=== PATIENT | male | born 1950 | race Caucasian/White ===

== ENCOUNTER 2021-06-08 03:07 | Emergency (ER) | payer MEDICARE, SELFPAY ==
[2021-06-08 03:17] VITALS: BP 130/81; PULSE 75; RESP 19; TEMP 36.4; O2SAT 95; BMI 26.8
[2021-06-08 03:32] LABS: Add Manual Diff / Slide Review NO; Basophils Absolute Auto 100 /uL (0-100); Basophils Percent Auto 0.7 % (0-2); Eosinophils Absolute Auto 400 /uL (0-450); Eosinophils Percent Auto 5.8 % (2-4); Hematocrit 46.8 % (41-53); Hemoglobin 15.5 g/dL (13.5-17.5); Lymphocytes Absolute Auto 1000 /uL (1100-4500); Lymphocytes Percent Auto 14.1 % (25-40); Mean Corpuscular Hemoglobin 30.6 PG (26-34); Mean Corpuscular Volume 92.7 fL (80-100); Monocytes Absolute Auto 1200 /uL (0-900); Neutrophils Absolute Auto 4600 /uL (1500-7000); Neutrophils Percent Auto 62.4 % (50-75); Platelet Count 226 X10^3/uL (150-400); Red Blood Cell Count 5.05 X10^6/uL (4.5-5.9); Red Cell Distribution Width 12.7 % (11.6-14.8); White Blood Cell Count 7.3 X10^3/uL (4.5-11.0)
[2021-06-08] MEDS: KETOROLAC 30 MG/ML VIAL IV (03:33)
[2021-06-08] MEDS: HYDROMORPHONE 1 MG INJ IV (03:34)
[2021-06-08] MEDS: ONDANSETRON 4 MG/2 ML INJ IV (03:34)
[2021-06-08 03:35] LABS: BUN Creatinine Ratio 26.9 (6-22); Blood Urea Nitrogen 32 mg/dL (9-20); Calcium 9.8 mg/dL (8.4-10.2); Carbon Dioxide 26 mmol/L (22-32); Chloride 104 mmol/L (98-107); Estimated Glomerular Filt Rate > 60.0 mL/min (>60); Glucose 115 mg/dL (80-110); HEMOLYSIS 64 (0-50); Sodium 139 mmol/L (137-145)
[2021-06-08 03:36] LABS: Potassium 4.6 mmol/L (3.4-5.1)
--- NOTE | 2021-06-08 03:50 | ED.GENADULT ---
HPI - General Adult General Chief complaint: Urogenital-Male Stated complaint: right side back pain, thinks kidney stone Time Seen by Provider: 06/08/21 03:09 Source: patient Mode of arrival: Ambulatory History of Present Illness HPI narrative: Patient is a 62-year-old male here for evaluation right-sided abdominal/flank/groin pain. He states that he thinks he has a kidney stone. He has had multiple kidney stones the past and this feels just like prior episode. He states he has had some back discomfort for the past several days but starting last evening he started to have pain in the right side of his abdomen is now down into his groin. Has blood in his urine. No fevers. Has quite a bit of discomfort expressed with urinating Related Data Previous Rx's Medication Instructions Recorded ondansetron 4 mg disintegrating 4 mg PO Q6H PRN #10 tab 06/08/21 tablet oxycodone-acetaminophen 5 mg-325 1 tab PO Q4H PRN #7 tab 06/08/21 mg tablet (Percocet) Allergies Allergy/AdvReac Type Severity Reaction Status Date / Time codeine AdvReac Vomiting Verified 06/08/21 03:25 Review of Systems Constitutional Comments: No fevers Gastrointestinal Gastrointestinal: Reports as per HPI Genitourinary Genitourinary: Reports as per HPI Integumentary/Breasts Skin/Breast: Reports system reviewed and no additional complaints, except as documented Hematologic/Lymphatic On Anticoagulants: No Patient History Medical History Kidney stones Social History Smoking Status: Never smoker Smoking Status: Never smoker alcohol intake frequency: 0-2 drinks per day Substance Use Type: does not use Exam Initial Vital Signs Initial Vital Signs: Vital Signs Temperature 97.5 F L 06/08/21 03:17 Pulse Rate 75 06/08/21 03:17 Respiratory Rate 19 06/08/21 03:17 Blood Pressure 130/81 06/08/21 03:17 Pulse Oximetry 95 06/08/21 03:17 Const General: cooperative and healthy appearing HENWA Head: normal to inspection and normocephalic Resp Effort & Inspection: normal respiratory effort Cardio Rate: regular rate GI Inspection: normal to inspection Palpation: soft and tender (Right side of abdomen) Skin General: no rashes or lesions noted Neuro General: patient alert, patient awake and moves all extremities Extrem General: normal to inspection and capillary refill normal Psych Appearance: grossly normal and well kempt Course Orders Ordered: ED Orders 06/08/21 03:20 Basic Metabolic Panel Stat Complete Blood Count AUTO DIFF Stat 06/08/21 05:05 Urinalysis and Microscopic Stat Urine Culture Stat Discontinued Medications Hydromorphone HCl (Hydromorphone 1 Mg Inj) 1 mg IV NOW ONE Stop: 06/08/21 03:24 Last Admin: 06/08/21 03:34 Dose: 1 mg Documented by: SUNDEEP Ketorolac Tromethamine (Ketorolac 30 Mg/Ml Vial) 30 mg IV NOW ONE Stop: 06/08/21 03:24 Last Admin: 06/08/21 03:33 Dose: 30 mg Documented by: SUNDEEP Ondansetron HCl (Ondansetron 4 Mg/2 Ml Inj) 4 mg IV NOW ONE Stop: 06/08/21 03:26 Last Admin: 06/08/21 03:34 Dose: 4 mg Documented by: SUNDEEP Ondansetron HCl (Ondansetron 4 Mg Odt Prepack) 1 bottle MISC SEEINSTR ONE Stop: 06/08/21 05:29 Last Admin: 06/08/21 05:32 Dose: 1 bottle Documented by: SUNDEEP Oxycodone/Acetaminophen (Oxycodone/Apap 5/325 Prepack) 1 bottle MISC SEEINSTR ONE Stop: 06/08/21 05:29 Last Admin: 06/08/21 05:32 Dose: 1 bottle Documented by: SUNDEEP Vital Signs Vital signs: Vital Signs - 8 hr 06/08/21 03:17 Temperature 97.5 F L Pulse Rate 75 Respiratory Rate 19 Blood Pressure 130/81 Pulse Oximetry 95 Medical Decision Making Lab Data Lab results reviewed: Yes I reviewed the patient's lab results. Result diagrams: 06/08/21 03:20 06/08/21 03:20 Labs: Lab Results 06/08/21 06/08/21 06/08/21 Range/Units 03:20 03:20 05:05 WBC 7.3 (4.5-11.0) X10^3/uL RBC 5.05 (4.5-5.9) X10^6/uL Hgb 15.5 (13.5-17.5) g/dL Hct 46.8 (41-53) % MCV 92.7 (80-100) fL MCH 30.6 (26-34) PG MCHC 33.0 (30-36) % RDW 12.7 (11.6-14.8) % Plt Count 226 (150-400) X10^3/uL Neut % (Auto) 62.4 (50-75) % Lymph % (Auto) 14.1 L (25-40) % [place] % (Auto) 17.0 H (3-14) % Eos % (Auto) 5.8 H (2-4) % Baso % (Auto) 0.7 (0-2) % Neut # (Auto) 4600 (1018-0283) /uL Lymph # (Auto) 1000 L (6510-0380) /uL [place] # (Auto) 1200 H (0-900) /uL Eos # (Auto) 400 (0-450) /uL Baso # (Auto) 100 (0-100) /uL Sodium 139 (137-145) mmol/L Potassium 4.6 (3.4-5.1) mmol/L Chloride 104 (98-107) mmol/L Carbon Dioxide 26 (22-32) mmol/L BUN 32 H (9-20) mg/dL Creatinine 1.19 (0.66-1.25) mg/dL Estimated GFR > 60.0 (>60) mL/min BUN/Creatinine Ratio 26.9 H (6-22) Glucose 115 H (80-110) mg/dL Calcium 9.8 (8.4-10.2) mg/dL Urine Color Yellow Urine Appearance Cloudy Urine pH 5.0 (4.5-8.0) Ur Specific [place] 1.025 (1.000-1.035) Urine Protein 2+ H (Negative) Urine Glucose (UA) Negative (Negative) g/dL Urine Ketones Negative (NEGATIVE) Urine Occult Blood 3+ H (Negative) Urine Nitrate Negative (Negative) Urine Bilirubin Negative (NEGATIVE) Urine Urobilinogen 0.2 (0.2) E.U./dL Ur Leukocyte Esterase Trace H (NEGATIVE) Urine RBC 30-100/hpf H (0-5/HPF) Urine WBC 0-1/hpf (0-5/HPF) Ur Squamous Epith Cells 0-1 /hpf (0-5/HPF) Calcium Oxalate Crystal Few H Urine Bacteria Moderate (10-30) H (None) Hyaline Casts 0-1/lpf (None) Ur Culture Indicated? Specimen cultured MDM Narrative Medical decision making narrative: Patient does have right-sided flank/abdominal discomfort. He has had multiple kidney stones in the past he states this feels just like his prior kidney stones. His kidney function is unremarkable. Does not have leukocytosis. Vital signs unremarkable. Had a great improvement of his symptoms after medications here in the ER. Urine does have bacteria and red blood cells. We will hold on treating with any antibiotics until the cultures resulted. The patient was informed that there was a culture pending at the time of his discharge and that we will contact him if we need to start any medications. Will send home with symptom control. He was given strict return precautions and follow-up instructions. He expressed understanding and agreement. Discharge Plan Departure Patient Disposition: Home Clinical Impression: Kidney stone on right side Instructions: DI for Kidney Stones Activity Restrictions/Additional Instructions: A prescription for pain medication was electronically transmitted to [facility]. Please start taking as directed. Be sure to increase your fluid intake. Contact your primary doctor for follow-up. If you do not have a primary doctor you can contact [phone]. This is the health resource development director here at the hospital that can help you establish a primary doctor. Return to the emergency department for any fevers, pain that is not controlled medication or inability to urinate. Prescriptions: New ondansetron 4 mg tablet,disintegrating 4 mg PO Q6H PRN (Reason: nausea and vomiting) Qty: 10 RF: 0 oxycodone-acetaminophen [Percocet] 5-325 mg tablet 1 tab PO Q4H PRN (Reason: pain) Qty: 7 RF: 0
[2021-06-08 05:11] LABS: Appearance Urine UA CLOUDY; Bilirubin Urine UA NEGATIVE (NEGATIVE); Color Urine UA YELLOW; Glucose Urine UA NEGATIVE (Negative); Ketones Urine UA NEGATIVE (NEGATIVE); Leukocyte Esterase Urine UA TRACE (NEGATIVE); Nitrite Urine UA NEGATIVE (Negative); Occult Blood Urine UA 3+ (Negative); Protein Urine UA 2+ (Negative); Specific Gravity Urine UA 1.025 (1.000-1.035); Urobilinogen Urine UA 0.2 E.U./dL (0.2)
[2021-06-08 05:19] LABS: Bacteria Urine Moderate (10-30); Calcium Oxalate Crystals Urine Few; RBC Urine 30-100/HPF (0-5/HPF); Squamous Epithelial Cell Urine 0-1 /HPF (0-5/HPF); WBC Urine 0-1/HPF (0-5/HPF)
[2021-06-08 05:20] LABS: Culture Indicated Urine Specimen Cultured; Hyaline Casts Urine 0-1/LPF
[2021-06-08] MEDS: ONDANSETRON 4 MG ODT PREPACK 1 BOTTLE MISC (05:32)
[2021-06-08] MEDS: OXYCODONE/APAP 5/325 PREPACK 1 BOTTLE MISC (05:32)
[2021-06-08 05:38] VITALS: BP 125/79; PULSE 59; RESP 16; O2SAT 99
== END 2021-06-08 05:39 | disposition home or self-care (01) ==
PROVIDERS: Emergency Provider Emergency Medicine
DX: N20.0 Calculus of kidney (principal); Z87.442 Personal history of urinary calculi
CPT/HCPCS: 36415; 80048; 81001; 85025; 87086; 96374; 96375; 99284; J1170; J1885; J2405

== ENCOUNTER 2021-12-30 09:05 | Emergency (ER) | payer OTHER, SELFPAY ==
[2021-12-30] VITALS (23 sets, daily range): BP systolic 91–134; BP diastolic 52–84; PULSE 72–119; RESP 14–17; TEMP 36.6–39.6; O2SAT 93–97; BMI 26.9
--- NOTE | 2021-12-30 09:20 | DI.RAD.S_ITS ---
PROCEDURE: XR CHEST 1V INDICATIONS: suspected sepsis TECHNIQUE: One view of the chest was acquired. COMPARISON: None. FINDINGS: Surgical changes and devices: None. Lungs and pleura: Bilateral airspace opacities are seen. No pleural effusions or pneumothorax. Mediastinum: Mediastinal contours appear normal. Enlargement of the cardiac silhouette, partially exaggerated by technique. Bones and chest wall: No suspicious bony lesions. Overlying soft tissues appear unremarkable. IMPRESSION: Multifocal pneumonia. Dictated by: Tae Pinedo M.D. on 12/30/2021 at 10:06 Approved by: Tae Pinedo M.D. on 12/30/2021 at 10:07
[2021-12-30] MEDS: ONDANSETRON 4 MG/2 ML INJ IV (09:45)
[2021-12-30] MEDS: SODIUM CHLORIDE 0.9% 1,000 ML 1000 ML IV ×2 (09:45→11:25)
[2021-12-30] MEDS: ACETAMINOPHEN 325 MG TABLET 975 MG PO (09:45)
--- NOTE | 2021-12-30 09:55 | DI.CT.S_ITS ---
PROCEDURE: CT ABDOMEN PELVIS W CON INDICATIONS: Lower abdominal pain. Fever. Recent prostate biopsy. TECHNIQUE: After the administration of intravenous contrast, axial sections acquired from the lung bases to the pubic symphysis. Coronal and sagittal reformats were performed. For radiation dose reduction, the following was used: automated exposure control, adjustment of mA and/or kV according to patient size. COMPARISON: [facility], CR, XR CHEST 1V, 12/30/2021, 9:42. FINDINGS: Image quality: Excellent. Lung bases: Bilateral patchy ground-glass opacities and small consolidations in the included portions of both lungs is suspicious for pneumonia. Mildly prominent mediastinal and hilar lymph nodes are likely reactive. Heart: No significant findings. ABDOMEN: Liver: Unremarkable. Gallbladder: Unremarkable. Biliary ducts: Unremarkable. Pancreas: Unremarkable. Spleen: Multiple small nonspecific hypodense lesions are seen throughout the spleen. A few coarse calcifications are also noted in the spleen. Adrenal Glands: Unremarkable. Kidneys and Ureters: Multiple bilateral simple appearing renal cysts are seen, right greater than left. Mild left renal cortical scarring is present. Multiple small nonobstructing renal calculi are seen bilaterally measuring up to 4 mm on the right and 3 mm on the left. No hydronephrosis. No ureteral calculus. Stomach and Bowel: Scattered diverticula are seen in the colon without signs of acute diverticulitis. Normal appendix. Peritoneum: No abnormal intraperitoneal fluid. No free air. Ventral Wall: No hernias. Abdominal Nodes: No retroperitoneal or mesenteric adenopathy by size criteria. Vessels: Aorta and inferior vena cava are normal in size. PELVIS: Pelvic Organs: Coarse calcifications are seen in the prostate. Bladder: Unremarkable. Pelvic Nodes: No enlarged lymph nodes. Miscellaneous: Small fat containing right inguinal hernia. Bones: Laminectomy changes are seen at the L5-S1 level with right-sided posterior fixation hardware. Degenerative changes are seen in the spine. A right total hip arthroplasty is present. IMPRESSION: 1. Patchy opacities in the bilateral lower lobes are suspicious for pneumonia, in a pattern that can be seen in the setting of COVID-19 infection. 2. No acute abnormality is identified in the abdomen or pelvis. 3. Multiple small low-density lesions in the spleen are nonspecific but could be related to a systemic infectious or inflammatory process including a granulomatous disease or certain fungal infections. 4. Colonic diverticulosis without signs of acute diverticulitis. 5. Bilateral nonobstructing renal calculi and renal cysts. No hydronephrosis. Dictated by: Merrick Cobb M.D. on 12/30/2021 at 10:28 Approved by: Merrick Cobb M.D. on 12/30/2021 at 10:40
[2021-12-30 10:01] LABS: Add Manual Diff / Slide Review NO; Basophils Absolute Auto 0 /uL (0-100); Basophils Percent Auto 0.3 % (0-2); Eosinophils Absolute Auto 100 /uL (0-450); Eosinophils Percent Auto 0.5 % (2-4); Hematocrit 43.3 % (41-53); Hemoglobin 14.9 g/dL (13.5-17.5); Lymphocytes Absolute Auto 500 /uL (1100-4500); Lymphocytes Percent Auto 4.1 % (25-40); Mean Corpuscular HGB Conc 34.4 % (30-36); Mean Corpuscular Hemoglobin 30.8 PG (26-34); Mean Corpuscular Volume 89.7 fL (80-100); Monocytes Absolute Auto 200 /uL (0-900); Monocytes Percent Auto 1.3 % (3-14); Neutrophils Absolute Auto 11400 /uL (1500-7000); Neutrophils Percent Auto 93.8 % (50-75); Platelet Count 185 X10^3/uL (150-400); Red Blood Cell Count 4.83 X10^6/uL (4.5-5.9); Red Cell Distribution Width 13.4 % (11.6-14.8); White Blood Cell Count 12.2 X10^3/uL (4.5-11.0)
[2021-12-30 10:03] LABS: INR 1.2 (0.9-1.3); Prothrombin Time 14.1 SECONDS (10.1-12.7)
[2021-12-30 10:03] LABS: COVID19 -Nasal RAPID Negative (Negative)
[2021-12-30 10:06] LABS: Lactate (Lactic Acid) 2.1 mmol/L (0.7-2.1); PTT Partial Thromboplastin Tim 36 SECONDS (26.4-36.2)
[2021-12-30 10:07] LABS: Alanine Aminotransferase 17 IU/L (<50); Albumin 4.1 g/dL (3.5-5.0); Albumin Globulin Ratio 1.1 (1.0-2.8); Alkaline Phosphatase 74 U/L (38-126); Aspartate Aminotransferase 25 IU/L (17-59); BUN Creatinine Ratio 18.1 (6-22); Bilirubin Total 0.9 mg/dL (0.2-1.3); Blood Urea Nitrogen 21 mg/dL (9-20); Calcium 10.1 mg/dL (8.4-10.2); Carbon Dioxide 29 mmol/L (22-32); Chloride 104 mmol/L (98-107); Estimated Glomerular Filt Rate > 60.0 mL/min (>60); Globulin 3.8 g/dL (1.7-4.1); Glucose 108 mg/dL (80-110); HEMOLYSIS < 15 (0-50); Lipase 30 U/L (23-300); Sodium 141 mmol/L (137-145); Total Protein 7.9 g/dL (6.3-8.2)
[2021-12-30] MEDS: PIPERACILLIN/TAZO 4.5 GM in SODIUM CHLORIDE 0.9% 100 ML 200 ML IV (10:12)
[2021-12-30 10:24] LABS: Procalcitonin 21.3 ng/mL (<0.5)
[2021-12-30 11:06] LABS: Appearance Urine UA SL CLOUDY; Bilirubin Urine UA NEGATIVE (NEGATIVE); Color Urine UA YELLOW; Glucose Urine UA NEGATIVE (Negative); Ketones Urine UA NEGATIVE (NEGATIVE); Leukocyte Esterase Urine UA 1+ (NEGATIVE); Nitrite Urine UA POSITIVE (Negative); Occult Blood Urine UA 3+ (Negative); Protein Urine UA 1+ (Negative); Specific Gravity Urine UA 1.015 (1.000-1.035); Urobilinogen Urine UA 0.2 E.U./dL (0.2)
[2021-12-30 11:11] LABS: RBC Urine 10-30/HPF (0-5/HPF); WBC Urine >100/HPF (0-5/HPF)
[2021-12-30 11:12] LABS: Bacteria Urine Many (>30); Culture Indicated Urine Specimen Cultured
[2021-12-30] MEDS: KETOROLAC 30 MG/ML VIAL 15 MG IV (11:25)
--- NOTE | 2021-12-30 11:36 | ED.FEVER ---
HPI - Fever General Chief Complaint: Fever Stated Complaint: Chills, Fever, nausea post prostate biopsy 12/28 Time Seen by Provider: 12/30/21 09:53 Source: patient Mode of arrival: Wheelchair History of Present Illness HPI Narrative: The patient underwent prostate biopsies 2 days ago. The 1st day after procedure, he did well. He then developed abdominal pain with nausea vomiting the 2nd day. He felt better for several hours, nausea vomiting returns. He presents now with fever, abdominal pain, with nausea vomiting. Has no headache, no sore throat, no cough or dyspnea. He denies chest pain. He has no chronic GI issues. He has no dysuria, or hematuria with current symptoms. He has no change in BMs. Related Data Previous Rx's Medication Instructions Recorded ondansetron 4 mg disintegrating 4 mg PO Q6H PRN #10 tab 06/08/21 tablet oxycodone-acetaminophen 5 mg-325 1 tab PO Q4H PRN #7 tab 06/08/21 mg tablet (Percocet) cefdinir 300 mg capsule 300 mg PO Q12H 10 Days #20 cap 12/30/21 ondansetron 4 mg disintegrating 4 mg PO Q4-6H PRN #14 tab 12/30/21 tablet Allergies Allergy/AdvReac Type Severity Reaction Status Date / Time codeine AdvReac Vomiting Verified 12/30/21 09:34 Review of Systems Constitutional Constitutional: Reports chills, Reports fever(s) and Denies headache(s) ENT Ears, Nose, Mouth, and Throat: Denies vertigo, Denies dizziness, Denies headache(s), Denies sinus pressure and Denies sore throat Cardiovascular Cardiovascular: Denies chest pain, Denies syncope, Denies rapid heart rate and Denies dyspnea Respiratory Respiratory: Denies cough and Denies dyspnea Gastrointestinal Gastrointestinal: Reports abdominal pain, Denies change in stool character, Reports nausea and Reports vomiting Genitourinary Genitourinary: Denies dysuria, Denies urinary frequency and Denies urinary urgency Musculoskeletal Musculoskeletal: Denies back pain Integumentary/Breasts Skin/Breast: Denies lesions and Denies rash Neurologic Neurologic: Denies vertigo, Denies dizziness, Denies syncope and Denies headache(s) Hematologic/Lymphatic On Anticoagulants: No Patient History Medical History (Updated 12/30/21 @ 14:55 by Burak Jackson MD) Kidney stones Restrictive lung disease Surgical History (Updated 12/30/21 @ 14:52 by Burak Jackson MD) Hx of prostate biopsy Social History Smoking Status: Never smoker Smoking Status: Never smoker alcohol intake frequency: 0-2 drinks per day Substance Use Type: does not use Exam Initial Vital Signs Initial Vital Signs: Vital Signs Temperature 103.1 F H 12/30/21 09:07 Pulse Rate 111 H 12/30/21 09:07 Respiratory Rate 14 12/30/21 09:07 Blood Pressure 130/84 12/30/21 09:07 Pulse Oximetry 93 12/30/21 09:07 Const General: acute distress, No anxious and ill appearing Orientation: Orientation (Normal) [facility] Head: normocephalic and atraumatic Mouth: oral mucosae normal Throat: posterior oropharynx normal Eyes General: appearance normal, both eyes and all related structures Neck Neck: No lymphadenopathy Resp Auscultation: clear to auscultation bilaterally Cardio Rate: regular rate Rhythm: regular rhythm Heart Sounds: S1 normal, S2 normal, no click, no gallops and no murmurs GI Inspection: normal to inspection Palpation: soft, No mass and tender (Suprapubic region.) Auscultation: normal bowel sounds and other (No guarding or rebound.) Back/Spine/Pelvis Back: No CVA tenderness Skin General: no rashes or lesions noted Neuro General: patient alert, patient awake and no focal motor deficits Extrem General: normal to inspection Psych Appearance: grossly normal Course Orders Ordered: ED Orders 12/30/21 09:20 XR chest 1V Stat EKG-12 Lead Stat RT Consult Eval and Treat NOW 12/30/21 09:43 COVID19 -Nasal swab/Pre-Proc Stat 12/30/21 09:45 Complete Blood Count AUTO DIFF Stat Comprehensive Metabolic Panel Stat Lactate (Lactic Acid) Stat Lipase Stat Partial Thromboplastin Time Stat Procalcitonin Stat Prothrombin Time INR Stat 12/30/21 09:55 CT abdomen pelvis w con Stat 12/30/21 10:05 Blood Culture Stat 12/30/21 10:40 Urinalysis and Microscopic Stat Urine Culture Stat Sodium Chloride (Normal Saline 0.9%) 1,000 mls @ 1,000 mls/hr IV BOLUS PRN PRN Reason: Fluid replacement Discontinued Medications Acetaminophen (Acetaminophen 325 Mg Tablet) 975 mg PO NOW ONE Stop: 12/30/21 09:43 Last Admin: 12/30/21 09:45 Dose: 975 mg Documented by: [place] Sodium Chloride (Normal Saline 0.9%) 1,000 mls @ 1,000 mls/hr IV BOLUS ONE Stop: 12/30/21 10:19 Last Infusion: 12/30/21 12:43 Dose: 0 mls/hr Documented by: JOSE LUIS Admin: 12/30/21 09:45 Dose: 1,000 mls/hr Documented by: [place] Sodium Chloride (Normal Saline 0.9%) 1,000 mls @ 1,000 mls/hr IV BOLUS ONE Stop: 12/30/21 10:54 Last Infusion: 12/30/21 13:43 Dose: 0 mls/hr Documented by: Admin: 12/30/21 11:25 Dose: 1,000 mls/hr Documented by: JOSE LUIS Piperacillin Sod/Tazobactam (Sod 4.5 gm/ Sodium Chloride) 100 mls @ 200 mls/hr IV NOW ONE Stop: 12/30/21 09:59 Last Infusion: 12/30/21 11:14 Dose: 0 mls/hr Documented by: Admin: 12/30/21 10:12 Dose: 200 mls/hr Documented by: [place] Ketorolac Tromethamine (Ketorolac 30 Mg/Ml Vial) 15 mg IV NOW ONE Stop: 12/30/21 10:57 Last Admin: 12/30/21 11:25 Dose: 15 mg Documented by: JOSE LUIS Ondansetron HCl (Ondansetron 4 Mg/2 Ml Inj) 4 mg IV NOW ONE Stop: 12/30/21 09:21 Last Admin: 12/30/21 09:45 Dose: 4 mg Documented by: [place] Ondansetron HCl (Ondansetron 4 Mg/2 Ml Inj) 4 mg IV NOW ONE Stop: 12/30/21 09:56 Last Admin: 12/30/21 10:29 Dose: Not Given Documented by: JOSE LUIS Vital Signs Vital signs: Vital Signs - 8 hr 12/30/21 09:07 12/30/21 09:16 12/30/21 09:17 Temperature 103.1 F H Pulse Rate 111 H 112 H 112 H Respiratory Rate 14 Blood Pressure 130/84 130/84 132/81 Pulse Oximetry 93 94 94 12/30/21 09:30 12/30/21 10:00 12/30/21 10:37 Temperature Pulse Rate 111 H 119 H 105 H Respiratory Rate 17 Blood Pressure 134/75 Pulse Oximetry 95 95 94 12/30/21 10:38 12/30/21 11:00 12/30/21 11:14 Temperature 103.2 F H Pulse Rate 106 H 108 H Respiratory Rate Blood Pressure 121/62 115/58 L Pulse Oximetry 93 94 12/30/21 11:25 12/30/21 11:26 12/30/21 11:30 Temperature 103.2 F H 103.2 F H Pulse Rate 102 H Respiratory Rate Blood Pressure 100/65 Pulse Oximetry 94 12/30/21 12:00 12/30/21 12:01 12/30/21 12:30 Temperature Pulse Rate 95 H 94 H 92 H Respiratory Rate Blood Pressure 106/55 L 109/59 L Pulse Oximetry 93 94 94 MDM - Fever Lab Data Result diagrams: 12/30/21 09:45 12/30/21 09:45 Labs: Lab Results 12/30/21 12/30/21 12/30/21 Range/Units 09:43 09:45 09:45 WBC 12.2 H (4.5-11.0) X10^3/uL RBC 4.83 (4.5-5.9) X10^6/uL Hgb 14.9 (13.5-17.5) g/dL Hct 43.3 (41-53) % MCV 89.7 (80-100) fL MCH 30.8 (26-34) PG MCHC 34.4 (30-36) % RDW 13.4 (11.6-14.8) % Plt Count 185 (150-400) X10^3/uL Neut % (Auto) 93.8 H (50-75) % Lymph % (Auto) 4.1 L (25-40) % [place] % (Auto) 1.3 L (3-14) % Eos % (Auto) 0.5 L (2-4) % Baso % (Auto) 0.3 (0-2) % Neut # (Auto) 81116 H (1547-6485) /uL Lymph # (Auto) 500 L (8919-1508) /uL [place] # (Auto) 200 (0-900) /uL Eos # (Auto) 100 (0-450) /uL Baso # (Auto) 0 (0-100) /uL PT 14.1 H (10.1-12.7) SECONDS INR 1.2 (0.9-1.3) APTT 36 (26.4-36.2) SECONDS Sodium (137-145) mmol/L Potassium (3.4-5.1) mmol/L Chloride (98-107) mmol/L Carbon Dioxide (22-32) mmol/L BUN (9-20) mg/dL Creatinine (0.66-1.25) mg/dL Estimated GFR (>60) mL/min BUN/Creatinine Ratio (6-22) Glucose (80-110) mg/dL Lactate (0.7-2.1) mmol/L Calcium (8.4-10.2) mg/dL Total Bilirubin (0.2-1.3) mg/dL AST (17-59) IU/L ALT (<50) IU/L Alkaline Phosphatase (38-126) U/L Total Protein (6.3-8.2) g/dL Albumin (3.5-5.0) g/dL Globulin (1.7-4.1) g/dL Albumin/Globulin Ratio (1.0-2.8) Lipase (23-300) U/L Procalcitonin (<0.5) ng/mL Urine Color Urine Appearance Urine pH (4.5-8.0) Ur Specific [place] (1.000-1.035) Urine Protein (Negative) Urine Glucose (UA) (Negative) g/dL Urine Ketones (NEGATIVE) Urine Occult Blood (Negative) Urine Nitrate (Negative) Urine Bilirubin (NEGATIVE) Urine Urobilinogen (0.2) E.U./dL Ur Leukocyte Esterase (NEGATIVE) Urine RBC (0-5/HPF) Urine WBC (0-5/HPF) Urine Bacteria (None) Ur Culture Indicated? SARS-CoV-2 (PCR) Negative (Negative) 12/30/21 12/30/21 12/30/21 Range/Units 09:45 09:45 10:40 WBC (4.5-11.0) X10^3/uL RBC (4.5-5.9) X10^6/uL Hgb (13.5-17.5) g/dL Hct (41-53) % MCV (80-100) fL MCH (26-34) PG MCHC (30-36) % RDW (11.6-14.8) % Plt Count (150-400) X10^3/uL Neut % (Auto) (50-75) % Lymph % (Auto) (25-40) % [place] % (Auto) (3-14) % Eos % (Auto) (2-4) % Baso % (Auto) (0-2) % Neut # (Auto) (7339-5439) /uL Lymph # (Auto) (9393-4603) /uL [place] # (Auto) (0-900) /uL Eos # (Auto) (0-450) /uL Baso # (Auto) (0-100) /uL PT (10.1-12.7) SECONDS INR (0.9-1.3) APTT (26.4-36.2) SECONDS Sodium 141 (137-145) mmol/L Potassium 4.0 (3.4-5.1) mmol/L Chloride 104 (98-107) mmol/L Carbon Dioxide 29 (22-32) mmol/L BUN 21 H (9-20) mg/dL Creatinine 1.16 (0.66-1.25) mg/dL Estimated GFR > 60.0 (>60) mL/min BUN/Creatinine Ratio 18.1 (6-22) Glucose 108 (80-110) mg/dL Lactate 2.1 (0.7-2.1) mmol/L Calcium 10.1 (8.4-10.2) mg/dL Total Bilirubin 0.9 (0.2-1.3) mg/dL AST 25 (17-59) IU/L ALT 17 (<50) IU/L Alkaline Phosphatase 74 (38-126) U/L Total Protein 7.9 (6.3-8.2) g/dL Albumin 4.1 (3.5-5.0) g/dL Globulin 3.8 (1.7-4.1) g/dL Albumin/Globulin Ratio 1.1 (1.0-2.8) Lipase 30 (23-300) U/L Procalcitonin 21.3 H (<0.5) ng/mL Urine Color Yellow Urine Appearance Sl cloudy Urine pH 7.0 (4.5-8.0) Ur Specific [place] 1.015 (1.000-1.035) Urine Protein 1+ H (Negative) Urine Glucose (UA) Negative (Negative) g/dL Urine Ketones Negative (NEGATIVE) Urine Occult Blood 3+ H (Negative) Urine Nitrate Positive H (Negative) Urine Bilirubin Negative (NEGATIVE) Urine Urobilinogen 0.2 (0.2) E.U./dL Ur Leukocyte Esterase 1+ H (NEGATIVE) Urine RBC 10-30/hpf H (0-5/HPF) Urine WBC >100/hpf H (0-5/HPF) Urine Bacteria Many (>30) H (None) Ur Culture Indicated? Specimen cultured SARS-CoV-2 (PCR) (Negative) 12/30/21 Range/Units 12:35 WBC (4.5-11.0) X10^3/uL RBC (4.5-5.9) X10^6/uL Hgb (13.5-17.5) g/dL Hct (41-53) % MCV (80-100) fL MCH (26-34) PG MCHC (30-36) % RDW (11.6-14.8) % Plt Count (150-400) X10^3/uL Neut % (Auto) (50-75) % Lymph % (Auto) (25-40) % [place] % (Auto) (3-14) % Eos % (Auto) (2-4) % Baso % (Auto) (0-2) % Neut # (Auto) (2416-4697) /uL Lymph # (Auto) (5211-5126) /uL [place] # (Auto) (0-900) /uL Eos # (Auto) (0-450) /uL Baso # (Auto) (0-100) /uL PT (10.1-12.7) SECONDS INR (0.9-1.3) APTT (26.4-36.2) SECONDS Sodium (137-145) mmol/L Potassium (3.4-5.1) mmol/L Chloride (98-107) mmol/L Carbon Dioxide (22-32) mmol/L BUN (9-20) mg/dL Creatinine (0.66-1.25) mg/dL Estimated GFR (>60) mL/min BUN/Creatinine Ratio (6-22) Glucose (80-110) mg/dL Lactate 1.5 (0.7-2.1) mmol/L Calcium (8.4-10.2) mg/dL Total Bilirubin (0.2-1.3) mg/dL AST (17-59) IU/L ALT (<50) IU/L Alkaline Phosphatase (38-126) U/L Total Protein (6.3-8.2) g/dL Albumin (3.5-5.0) g/dL Globulin (1.7-4.1) g/dL Albumin/Globulin Ratio (1.0-2.8) Lipase (23-300) U/L Procalcitonin (<0.5) ng/mL Urine Color Urine Appearance Urine pH (4.5-8.0) Ur Specific [place] (1.000-1.035) Urine Protein (Negative) Urine Glucose (UA) (Negative) g/dL Urine Ketones (NEGATIVE) Urine Occult Blood (Negative) Urine Nitrate (Negative) Urine Bilirubin (NEGATIVE) Urine Urobilinogen (0.2) E.U./dL Ur Leukocyte Esterase (NEGATIVE) Urine RBC (0-5/HPF) Urine WBC (0-5/HPF) Urine Bacteria (None) Ur Culture Indicated? SARS-CoV-2 (PCR) (Negative) Discharge Plan Departure Patient Disposition: Home Clinical Impression: Urinary tract infection Instructions: DI for Urinary Tract Infection (UTI) Activity Restrictions/Additional Instructions: Cefdinir 2 times daily as prescribed. Tylenol or Advil as needed for fever and pain. Zofran every 4 hours as needed for nausea. Be sure you are drinking plenty of water. If you have increased pain or return of fever return here. Follow-up with your doctor in about 2 weeks. Prescriptions: New cefdinir 300 mg capsule 300 mg PO Q12H 10 Days Qty: 20 0RF ondansetron 4 mg tablet,disintegrating 4 mg PO Q4-6H PRN (Reason: nausea and vomiting) Qty: 14 0RF No Action ondansetron 4 mg tablet,disintegrating 4 mg PO Q6H PRN (Reason: nausea and vomiting) Qty: 10 0RF oxycodone-acetaminophen [Percocet] 5-325 mg tablet 1 tab PO Q4H PRN (Reason: pain) Qty: 7 0RF Referrals: Juan David Browning MD [Primary Care Provider] -
[2021-12-30 11:58] LABS: Reflexed Lactate in 2 Hours Y
[2021-12-30 13:08] LABS: Lactate 2HR (Lactic Acid Rflx) 1.5 mmol/L (0.7-2.1)
[2021-12-30 22:46] LABS: Acinetobacter baumannii Not Detected (Not Detect); E. coli Detected (Not Detect); Enterobacter cloacae complex Not Detected (Not Detect); Enterobacteriaceae species Detected (Not Detect); Enterococcus species Not Detected (Not Detect); Haemophilus influenzae Not Detected (Not Detect); KPC (carbapenem-resist gene) Not Detected (Not Detect); Listeria monocytogenes Not Detected (Not Detect); Neisseria meningitidis Not Detected (Not Detect); Proteus species Not Detected (Not Detect); Pseudomonas aeruginosa Not Detected (Not Detect); Serratia marcescens Not Detected (Not Detect); Staphylococcus species Not Detected (Not Detect); Streptococcus agalactiae (Gr B Not Detected (Not Detect); Streptococcus pneumonia Not Detected (Not Detect); Streptococcus pyogenes (Gr A) Not Detected (Not Detect); Streptococcus species Not Detected (Not Detect)
[2021-12-30 22:47] LABS: Candida albicans Not Detected (Not Detect); Candida glabrata Not Detected (Not Detect); Candida krusei Not Detected (Not Detect); Candida parapsilosis Not Detected (Not Detect); Candida tropicalis Not Detected (Not Detect)
--- NOTE | 2022-01-01 16:55 | PC.NURSE ---
Patient called back with more questions after speaking about antibiotic change. Dr Moreira and patient spoke in depth about follow up. Patient was encouraged to come back to ER for further work up.
== END 2021-12-30 15:23 | disposition home or self-care (01) ==
PROVIDERS: Emergency Provider Emergency Medicine; PCP Family Medicine
DX: N39.0 Urinary tract infection, site not specified (principal); B96.89 Other specified bacterial agents as the cause of diseases classified elsewhere; Z16.19 Resistance to other specified beta lactam antibiotics; Z20.822 Contact with and (suspected) exposure to COVID-19
CPT/HCPCS: 36415; 71045; 74177; 80053; 81001; 83605; 83690; 84145; 85025; 85610; 85730; 87040; 87077; 87086; 87150; 87186; 87205; 87635; 93005; 93010; 96361; 96365; 96375; 99284; 99285; C9803; J1885; J2405; J2543

== ENCOUNTER 2022-01-01 17:16 | Observation (INO) | payer OTHER, SELFPAY ==
[2022-01-01] VITALS (7 sets, daily range): BP systolic 130–140; BP diastolic 79–83; PULSE 84–88; RESP 16–20; TEMP 36.5–37.9; O2SAT 98–100; BMI 26.5
[2022-01-01 18:36] LABS: Add Manual Diff / Slide Review NO; Basophils Absolute Auto 0 /uL (0-100); Basophils Percent Auto 0.3 % (0-2); Eosinophils Absolute Auto 300 /uL (0-450); Eosinophils Percent Auto 4.4 % (2-4); Hematocrit 39.1 % (41-53); Hemoglobin 13.5 g/dL (13.5-17.5); Lymphocytes Absolute Auto 500 /uL (1100-4500); Mean Corpuscular HGB Conc 34.5 % (30-36); Mean Corpuscular Hemoglobin 31.3 PG (26-34); Mean Corpuscular Volume 90.7 fL (80-100); Monocytes Absolute Auto 500 /uL (0-900); Monocytes Percent Auto 7.8 % (3-14); Neutrophils Absolute Auto 5200 /uL (1500-7000); Neutrophils Percent Auto 80.5 % (50-75); Platelet Count 122 X10^3/uL (150-400); Red Blood Cell Count 4.31 X10^6/uL (4.5-5.9); Red Cell Distribution Width 13.3 % (11.6-14.8); White Blood Cell Count 6.5 X10^3/uL (4.5-11.0)
[2022-01-01 18:43] LABS: Alanine Aminotransferase 24 IU/L (<50); Albumin 3.4 g/dL (3.5-5.0); Alkaline Phosphatase 70 U/L (38-126); Aspartate Aminotransferase 43 IU/L (17-59); Bilirubin Total 0.5 mg/dL (0.2-1.3); Blood Urea Nitrogen 16 mg/dL (9-20); Calcium 9.1 mg/dL (8.4-10.2); Carbon Dioxide 28 mmol/L (22-32); Chloride 105 mmol/L (98-107); Estimated Glomerular Filt Rate > 60.0 mL/min (>60); Globulin 3.4 g/dL (1.7-4.1); Glucose 154 mg/dL (80-110); HEMOLYSIS < 15 (0-50); Lactate (Lactic Acid) 1.4 mmol/L (0.7-2.1); Potassium 3.6 mmol/L (3.4-5.1); Sodium 138 mmol/L (137-145); Total Protein 6.8 g/dL (6.3-8.2)
[2022-01-01 19:00] LABS: Procalcitonin 10.7 ng/mL (<0.5)
--- NOTE | 2022-01-01 19:23 | ED.RECABL ---
HPI - Recheck/Abnormal Lab/Rx General Chief Complaint: Recheck/Abnormal Lab/Rx Stated Complaint: Doctor Called and Said to Come In Time Seen by Provider: 01/01/22 17:44 Source: patient Mode of arrival: Ambulatory History of Present Illness HPI narrative: Patient is a 71-year-old male who presents at e.d. request to return after positive blood cultures in positive UTI. He actually had a prostate biopsy [place] with a doctor over keep on 12/28/2021 he said by the following night he had rigors and shakes. He was seen and evaluated on 12/30/2021, he is diagnosed with UTI with an elevated procalcitonin sign of 21. He has E coli in his urine and blood he was placed on cefdinir as an outpatient. He has multi drug resistant E coli in his blood but relatively fairly sensitive E coli in his urine. Zosyn is an antibiotic that currently works for pulse. He says he is overall feeling a bit better but still is not 100%. He had still has some pain in the bladder with painful frequent urination. He denies any cough or shortness of breath. Related Data Home Medications Medication Instructions Recorded Confirmed famotidine 20 mg tablet 20 mg PO QPM 01/01/22 01/01/22 omeprazole 40 mg capsule,delayed 40 mg PO BID 01/01/22 01/01/22 release tamsulosin 0.4 mg capsule (Flomax) 0.8 mg PO QAM 01/01/22 01/01/22 Previous Rx's Medication Instructions Recorded cefdinir 300 mg capsule 300 mg PO Q12H 10 Days #20 cap 12/30/21 Allergies Allergy/AdvReac Type Severity Reaction Status Date / Time codeine AdvReac Vomiting Verified 12/30/21 09:34 Review of Systems Review of Systems Narrative: GENERAL: Denies chills, fatigue, malaise, fever, sweats, travel HEENT: Denies sinus pain, ear pain, sore throat, difficulty swallowing, neck pain RESPIRATORY: Denies dyspnea, cough, wheezing, hemoptysis, sputum. CARDIOVASCULAR: Denies chest pain, palpitations, orthopnea, edema GASTROINTESTINAL: Denies nausea, vomiting, abdominal pain, diarrhea, constipation, melena. : See HPI MUSCULOSKELETAL: Denies weakness, joint pain, or bony pain SKIN: No rash, no erythema, no pruritus NEUROLOGIC: Denies weakness, dizziness, headache, numbness, change in speech, confusion PSYCHIATRIC: No concerning psychosocial issues. 12 point review of systems is negative except for those stated above and HPI Patient History Medical History (Updated 01/02/22 @ 05:25 by JAZMYNE Love-) COVID-19 Gastric ulcer GERD (gastroesophageal reflux disease) Kidney stones Restrictive lung disease Surgical History Hx of prostate biopsy Family History Mother Congestive heart failure Cancer Father Cancer Social History household members: spouse Smoking Status: Never smoker Smoking Status: Never smoker alcohol intake frequency: 0-2 drinks per day Substance Use Type: does not use Exam Initial Vital Signs Initial Vital Signs: Vital Signs Temperature 97.7 F 01/01/22 17:19 Pulse Rate 86 01/01/22 17:19 Respiratory Rate 20 01/01/22 17:19 Blood Pressure 130/83 01/01/22 17:19 Pulse Oximetry 98 01/01/22 17:19 GENERAL: Alert 71-year-old male and in no acute distress. HEENT: Head atraumatic,EOMI, pupils reactive, face symmetric, moist mucous membranes CARDIOVASCULAR: Regular rate and rhythm without murmurs, rubs or gallops. RESPIRATORY: Breath sounds equal bilaterally, no wheezes rales or rhonchi. ABDOMEN: Soft, nontender. Normoactive bowel sounds all 4 quadrants. No guarding or rebound. : No CVA tenderness EXTREMITIES: Normal range of motion, no clubbing or edema. Neurovascularly intact NEUROLOGICAL: Alert and oriented x4.Normal gait and speech. SKIN: Warm, dry, no laceration, no petechiae, no rashes or lesions. Course Orders Ordered: Acetaminophen (Acetaminophen 325 Mg Tablet) 650 mg PO Q6HR PRN PRN Reason: Fever/Mild Pain (1-3) Last Admin: 01/01/22 22:04 Dose: 650 mg Documented by: AIDA Albuterol (Albuterol 2.5 Mg/3 Ml Neb (Adult)) 2.5 mg INH RTQ4HR PRN PRN Reason: Shortness Of Breath Benzonatate (Benzonatate 100 Mg Capsule) 100 mg PO TID PRN PRN Reason: Cough Last Admin: 01/02/22 06:51 Dose: 100 mg Documented by: Admin: 01/01/22 22:04 Dose: 100 mg Documented by: AIDA Enoxaparin Sodium (Enoxaparin 40 Mg/0.4 Ml Syringe) 40 mg SUBCUT DAILY [facility] Sodium Chloride (Normal Saline 0.9%) 1,000 mls @ 100 mls/hr IV CONT [facility] Last Admin: 01/01/22 22:30 Dose: 100 mls/hr Documented by: JULY Ertapenem 1 gm/ Sodium (Chloride) 100 mls @ 200 mls/hr IV Q24H [facility] Naloxone HCl (Naloxone 0.4 Mg/Ml Vial) 0.2 mg IV Q2MIN PRN PRN Reason: Opiate Reversal Ondansetron HCl (Ondansetron 4 Mg/2 Ml Inj) 4 mg IV Q8HR PRN PRN Reason: Nausea And Vomiting Last Admin: 01/01/22 23:01 Dose: 4 mg Documented by: JULY Pantoprazole Sodium (Pantoprazole Dr 40 Mg Tablet) 40 mg PO 0700 [facility] Last Admin: 01/02/22 06:46 Dose: 40 mg Documented by: JULY Tamsulosin HCl (Tamsulosin 0.4 Mg Capsule) 0.8 mg PO DAILY [facility] Discontinued Medications Albuterol (Albuterol Hfa Mdi 60 Puff/8 Gm Inhaler) 2 puff INH RTQ4HR PRN PRN Reason: Shortness Of Breath Al Hydrox/Mg Hydrox/Simethicone 20 ml/ Lidocaine HCl 15 ml 0 ml PO NOW ONE Stop: 01/01/22 23:05 Last Admin: 01/01/22 23:56 Dose: 20 ml Documented by: JULY Piperacillin Sod/Tazobactam (Sod 4.5 gm/ Sodium Chloride) 100 mls @ 200 mls/hr IV NOW ONE Stop: 01/01/22 19:26 Last Infusion: 01/01/22 20:28 Dose: 0 mls/hr Documented by: Admin: 01/01/22 19:44 Dose: 200 mls/hr Documented by: NAHED Sodium Chloride (Normal Saline 0.9%) 1,000 mls @ 1,000 mls/hr IV BOLUS ONE Stop: 01/01/22 20:38 Last Infusion: 01/01/22 20:40 Dose: 1,000 mls/hr Documented by: Admin: 01/01/22 19:47 Dose: 1,000 mls/hr Documented by: NAHED Pantoprazole Sodium (Pantoprazole 40 Mg Vial) 40 mg IV NOW ONE Stop: 01/01/22 23:03 Last Admin: 01/01/22 23:56 Dose: 40 mg Documented by: JULY Vital Signs Vital signs: Vital Signs - 8 hr 01/01/22 17:19 Temperature 97.7 F Pulse Rate 86 Respiratory Rate 20 Blood Pressure 130/83 Pulse Oximetry 98 MDM - Recheck/Abnormal Lab/Rx Lab Data Result diagrams: 01/02/22 05:10 01/01/22 18:11 Labs: Lab Results 01/01/22 01/01/22 01/01/22 Range/Units 18:11 18:11 18:11 WBC 6.5 (4.5-11.0) X10^3/uL RBC 4.31 L (4.5-5.9) X10^6/uL Hgb 13.5 (13.5-17.5) g/dL Hct 39.1 L (41-53) % MCV 90.7 (80-100) fL MCH 31.3 (26-34) PG MCHC 34.5 (30-36) % RDW 13.3 (11.6-14.8) % Plt Count 122 L (150-400) X10^3/uL Neut % (Auto) 80.5 H (50-75) % Lymph % (Auto) 7.0 L (25-40) % [place] % (Auto) 7.8 (3-14) % Eos % (Auto) 4.4 H (2-4) % Baso % (Auto) 0.3 (0-2) % Neut # (Auto) 5200 (7967-5165) /uL Lymph # (Auto) 500 L (7014-6564) /uL [place] # (Auto) 500 (0-900) /uL Eos # (Auto) 300 (0-450) /uL Baso # (Auto) 0 (0-100) /uL ESR (0-15) MM/HR Sodium 138 (137-145) mmol/L Potassium 3.6 (3.4-5.1) mmol/L Chloride 105 (98-107) mmol/L Carbon Dioxide 28 (22-32) mmol/L BUN 16 (9-20) mg/dL Creatinine 0.89 (0.66-1.25) mg/dL Estimated GFR > 60.0 (>60) mL/min BUN/Creatinine Ratio 18.0 (6-22) Glucose 154 H (80-110) mg/dL Lactate 1.4 (0.7-2.1) mmol/L Calcium 9.1 (8.4-10.2) mg/dL Total Bilirubin 0.5 (0.2-1.3) mg/dL AST 43 (17-59) IU/L ALT 24 (<50) IU/L Alkaline Phosphatase 70 (38-126) U/L C-Reactive Protein (<1.0) mg/dL Total Protein 6.8 (6.3-8.2) g/dL Albumin 3.4 L (3.5-5.0) g/dL Globulin 3.4 (1.7-4.1) g/dL Albumin/Globulin Ratio 1.0 (1.0-2.8) Procalcitonin 10.7 H (<0.5) ng/mL Urine Color Urine Appearance Urine pH (4.5-8.0) Ur Specific [place] (1.000-1.035) Urine Protein (Negative) Urine Glucose (UA) (Negative) g/dL Urine Ketones (NEGATIVE) Urine Occult Blood (Negative) Urine Nitrate (Negative) Urine Bilirubin (NEGATIVE) Urine Urobilinogen (0.2) E.U./dL Ur Leukocyte Esterase (NEGATIVE) Urine RBC (0-5/HPF) Urine WBC (0-5/HPF) Urine Bacteria (None) Ur Culture Indicated? 01/01/22 01/01/22 01/01/22 Range/Units 18:11 18:11 19:25 WBC (4.5-11.0) X10^3/uL RBC (4.5-5.9) X10^6/uL Hgb (13.5-17.5) g/dL Hct (41-53) % MCV (80-100) fL MCH (26-34) PG MCHC (30-36) % RDW (11.6-14.8) % Plt Count (150-400) X10^3/uL Neut % (Auto) (50-75) % Lymph % (Auto) (25-40) % [place] % (Auto) (3-14) % Eos % (Auto) (2-4) % Baso % (Auto) (0-2) % Neut # (Auto) (8269-8037) /uL Lymph # (Auto) (1088-6547) /uL [place] # (Auto) (0-900) /uL Eos # (Auto) (0-450) /uL Baso # (Auto) (0-100) /uL ESR 48 H (0-15) MM/HR Sodium (137-145) mmol/L Potassium (3.4-5.1) mmol/L Chloride (98-107) mmol/L Carbon Dioxide (22-32) mmol/L BUN (9-20) mg/dL Creatinine (0.66-1.25) mg/dL Estimated GFR (>60) mL/min BUN/Creatinine Ratio (6-22) Glucose (80-110) mg/dL Lactate (0.7-2.1) mmol/L Calcium (8.4-10.2) mg/dL Total Bilirubin (0.2-1.3) mg/dL AST (17-59) IU/L ALT (<50) IU/L Alkaline Phosphatase (38-126) U/L C-Reactive Protein 17.2 H (<1.0) mg/dL Total Protein (6.3-8.2) g/dL Albumin (3.5-5.0) g/dL Globulin (1.7-4.1) g/dL Albumin/Globulin Ratio (1.0-2.8) Procalcitonin (<0.5) ng/mL Urine Color Yellow Urine Appearance Sl cloudy Urine pH 6.0 (4.5-8.0) Ur Specific [place] 1.015 (1.000-1.035) Urine Protein Trace H (Negative) Urine Glucose (UA) Negative (Negative) g/dL Urine Ketones Negative (NEGATIVE) Urine Occult Blood 3+ H (Negative) Urine Nitrate Negative (Negative) Urine Bilirubin Negative (NEGATIVE) Urine Urobilinogen 0.2 (0.2) E.U./dL Ur Leukocyte Esterase 2+ H (NEGATIVE) Urine RBC 1-5/hpf D (0-5/HPF) Urine WBC 30-100/hpf H (0-5/HPF) Urine Bacteria Many (>30) H (None) Ur Culture Indicated? Specimen cultured Urine Dip Bedside Urine Glucose Negative Bedside Urine Bilirubin - Negative Bedside Urine Ketone - Negative Urine Specific [place] 1.020 Bedside Urine Occult Blood +++ Bedside Urine pH 6.0 Bedside Urine Protein +/- 15 Bedside Urine Urobilinogen - Negative Bedside Urine Nitrite - Negative Bedside Urine Leukocytes +/- 15 Esterase MDM Narrative Medical decision making narrative: Patient has known positive blood cultures and UTI with drug resistance. Zosyn is seem to be an appropriate antibiotic for both. He does have been improving procalcitonin from 20-10 and improving WBC count. However patient will need close monitoring and continued IV antibiotic due to multi-drug resistant bacteremia. He currently has no sign of severe sepsis normal vitals with normal lactic acid. Discharge Plan Departure Patient Disposition: Admitted As Inpatient Clinical Impression: Acute UTI, Bacteremia Admit Date/Time: 01/01/22 19:52 Admit Provider: Pamela Sellers
[2022-01-01 19:38] LABS: Appearance Urine UA SL CLOUDY; Bilirubin Urine UA NEGATIVE (NEGATIVE); Color Urine UA YELLOW; Glucose Urine UA NEGATIVE (Negative); Ketones Urine UA NEGATIVE (NEGATIVE); Leukocyte Esterase Urine UA 2+ (NEGATIVE); Nitrite Urine UA NEGATIVE (Negative); Occult Blood Urine UA 3+ (Negative); Protein Urine UA TRACE (Negative); Specific Gravity Urine UA 1.015 (1.000-1.035); Urobilinogen Urine UA 0.2 E.U./dL (0.2)
[2022-01-01 19:44] LABS: Bacteria Urine Many (>30); Culture Indicated Urine Specimen Cultured; RBC Urine 1-5/HPF (0-5/HPF); WBC Urine 30-100/HPF (0-5/HPF)
[2022-01-01] MEDS: PIPERACILLIN/TAZO 4.5 GM in SODIUM CHLORIDE 0.9% 100 ML 200 ML IV (19:44)
[2022-01-01] MEDS: SODIUM CHLORIDE 0.9% 1,000 ML 1000 ML IV (19:47)
[2022-01-01 20:34] LABS: COVID19 -Nasal RAPID Negative (Negative)
[2022-01-01 20:50] LABS: Erythrocyte Sedimentation Rate 48 MM/HR (0-15)
[2022-01-01 20:58] LABS: C-Reactive Protein Quant 17.2 mg/dL (<1.0)
[2022-01-01] MEDS: ACETAMINOPHEN 325 MG TABLET 650 MG PO (22:04)
[2022-01-01] MEDS: BENZONATATE 100 MG CAPSULE PO (22:04)
[2022-01-01] MEDS: SODIUM CHLORIDE 0.9% 1,000 ML 100 ML IV (22:30)
[2022-01-01] MEDS: ONDANSETRON 4 MG/2 ML INJ IV (23:01)
[2022-01-01] MEDS: MAG HYDROX/ALUMINUM/SIMETH SUS 20 ML, LIDOCAINE VISCOUS 2% 15 ML PO (23:56)
[2022-01-01] MEDS: PANTOPRAZOLE 40 MG VIAL IV (23:56)
[2022-01-02] VITALS (7 sets, daily range): BP systolic 125–141; BP diastolic 76–86; PULSE 74–86; RESP 17–20; TEMP 36.9–37.5; O2SAT 95–99
--- NOTE | 2022-01-02 05:12 | PM.HP.1 ---
History of Present Illness History of Present Illness Date Patient Seen: 01/01/22 Time Patient Seen: 20:27 Chief complaint: Doctor Called and Said to Come In Narrative: ?Pepe Smith is a 71-year-old male a history of elevated PSA, GERD, gastric ulcers, Covid-19: 09/2020 and restrictive lung disease presented to the ED following a request due to positive blood ( Ecoli-prelim)and urine cultures 01/01/22 ESBL-Ecoli.? Patient had a prostate biopsy done in [place] on 12/28/2021, the following night he developed rigors and shakes.? Seen 12/30/2021, he is diagnosed with UTI with an elevated procalcitonin sign of 21.? Placed on cefdinir for Urine E coli.? Blood culture demonstrated multi drug resistant E coli in his blood. Zosyn given in ED. ? Patient complains of continued of rigors, chills, body aches, nausea, abd pain, cough, acid reflux, pain in the bladder with dysuria. Denies chest pain, vomiting, shortness of breath, blood in urine or stool, or cardiac history. Patient's vitals were stable upon admit temp 97.7?, BP 130/83, HR 86, R 20, O2 saturation 98% on room air. Patient's CBC is stable with the exception of platelets of 122, CMP is unremarkable with the exception of glucose of 154, albumin 3.4, procalcitonin 10.7, reviewed urinary culture 01/01/2022 ESBL E coli, blood culture from 12/30/2021 E coli preliminary. Patient is admitted for bacteremia, UTI, and thrombocytopenia. Patient History Medical History (Updated 01/02/22 @ 05:25 by JAZMYNE Love-MIRNA) COVID-19 Gastric ulcer GERD (gastroesophageal reflux disease) Kidney stones Restrictive lung disease Surgical History Hx of prostate biopsy Family & Social History Family History Mother Congestive heart failure Cancer Father Cancer Social History: household members spouse Prior Living Arrangements House Safety & Behavioral: Feels Safe in Current Yes Environment Been Physically Hurt or No Threatened By a Person Suicidal Ideation Description None Suicide Plan Description No Plan Tobacco & Substance use: Smoking Status Never smoker alcohol intake frequency 0-2 drinks per day Substance Use Type does not use Meds Home Medications and Allergies Home Medications Medication Instructions Recorded Confirmed Type cefdinir 300 mg capsule 300 mg PO Q12H 10 Days #20 cap 12/30/21 01/01/22 Rx famotidine 20 mg tablet 20 mg PO QPM 01/01/22 01/01/22 History omeprazole 40 mg capsule,delayed 40 mg PO BID 01/01/22 01/01/22 History release tamsulosin 0.4 mg capsule (Flomax) 0.8 mg PO QAM 01/01/22 01/01/22 History Allergies Allergy/AdvReac Type Severity Reaction Status Date / Time codeine AdvReac Vomiting Verified 12/30/21 09:34 Review of Systems Review of Systems Narrative: All 12 point systems reviewed with the patient and are negative except otherwise documented. Exam Vital Signs (past 8 hours): - 01/01/22 21:22 01/01/22 22:04 01/01/22 22:39 Temperature 99.9 F H 100.2 F H Pulse Rate Respiratory Rate Blood Pressure Pulse Oximetry 100 01/01/22 23:21 01/02/22 00:00 01/02/22 01:00 Temperature 99.4 F Pulse Rate 84 86 Respiratory Rate 16 18 Blood Pressure 128/81 Pulse Oximetry 98 98 98 Oxygen Delivery Method Room Air Oxygen Flow Rate 0 Narrative Exam Narrative: General: Patient is a well-developed, well-nourished moderately ill appearing in moderate distress at this time, hemodynamically stable. HEENT: Normocephalic, atraumatic, extraocular muscles intact, oral pharynx is clear and mucous membranes are dry. Neck is supple and symmetric, trachea is midline, no adenopathy, no thyroid enlargement, nontender, no masses palpated. Negative for JVD Chest: no nasal flaring, retractions, or tachypneic labored breathing. Lungs: Auscultation of all lung lewis are clear, decreased with poor air exchange in bilateral bases. Cardio: regular rate and rhythm without murmur, rubs, or gallops, no carotid bruit, no cardiac pulsations present. Abdomen: Soft, mild diffuse lower quadrant tenderness with palpation, negative for organomegaly, or masses. Bowel sounds are present in all 4 quadrants, no CVA tenderness. Musculoskeletal: Muscle strength and tone are equal within normal limits, no deformity, crepitus, effusions, cyanosis, clubbing or edema present. Full range of motion intact radial and pedal pulses are normal. Skin: Warm dry and intact without rashes, ulcerations or petechiae. Neuro: Alert and orientated x3, strength is +5/5 in all extremities, sensation to touch intact, no gross deficits noted of cranial nerves. Psych: Patient has a well-kept appearance, appropriate affect, mental status attitude thought context and judgment are appropriate for age. Objective Labs Result Diagrams: 01/01/22 18:11 01/01/22 18:11 Labs: Laboratory Results - last 24 hr 01/01/22 01/01/22 01/01/22 18:11 18:11 18:11 WBC 6.5 RBC 4.31 L Hgb 13.5 Hct 39.1 L MCV 90.7 MCH 31.3 MCHC 34.5 RDW 13.3 Plt Count 122 L Neut % (Auto) 80.5 H Lymph % (Auto) 7.0 L [place] % (Auto) 7.8 Eos % (Auto) 4.4 H Baso % (Auto) 0.3 Neut # (Auto) 5200 Lymph # (Auto) 500 L [place] # (Auto) 500 Eos # (Auto) 300 Baso # (Auto) 0 ESR Sodium 138 Potassium 3.6 Chloride 105 Carbon Dioxide 28 BUN 16 Creatinine 0.89 Estimated GFR > 60.0 BUN/Creatinine Ratio 18.0 Glucose 154 H Lactate 1.4 Calcium 9.1 Total Bilirubin 0.5 AST 43 ALT 24 Alkaline Phosphatase 70 C-Reactive Protein Total Protein 6.8 Albumin 3.4 L Globulin 3.4 Albumin/Globulin Ratio 1.0 Procalcitonin 10.7 H Urine Color Urine Appearance Urine pH Ur Specific [place] Urine Protein Urine Glucose (UA) Urine Ketones Urine Occult Blood Urine Nitrate Urine Bilirubin Urine Urobilinogen Ur Leukocyte Esterase Urine RBC Urine WBC Urine Bacteria Ur Culture Indicated? SARS-CoV-2 (PCR) 01/01/22 01/01/22 01/01/22 18:11 18:11 19:25 WBC RBC Hgb Hct MCV MCH MCHC RDW Plt Count Neut % (Auto) Lymph % (Auto) [place] % (Auto) Eos % (Auto) Baso % (Auto) Neut # (Auto) Lymph # (Auto) [place] # (Auto) Eos # (Auto) Baso # (Auto) ESR 48 H Sodium Potassium Chloride Carbon Dioxide BUN Creatinine Estimated GFR BUN/Creatinine Ratio Glucose Lactate Calcium Total Bilirubin AST ALT Alkaline Phosphatase C-Reactive Protein 17.2 H Total Protein Albumin Globulin Albumin/Globulin Ratio Procalcitonin Urine Color Yellow Urine Appearance Sl cloudy Urine pH 6.0 Ur Specific [place] 1.015 Urine Protein Trace H Urine Glucose (UA) Negative Urine Ketones Negative Urine Occult Blood 3+ H Urine Nitrate Negative Urine Bilirubin Negative Urine Urobilinogen 0.2 Ur Leukocyte Esterase 2+ H Urine RBC 1-5/hpf D Urine WBC 30-100/hpf H Urine Bacteria Many (>30) H Ur Culture Indicated? Specimen cultured SARS-CoV-2 (PCR) 01/01/22 20:03 WBC RBC Hgb Hct MCV MCH MCHC RDW Plt Count Neut % (Auto) Lymph % (Auto) [place] % (Auto) Eos % (Auto) Baso % (Auto) Neut # (Auto) Lymph # (Auto) [place] # (Auto) Eos # (Auto) Baso # (Auto) ESR Sodium Potassium Chloride Carbon Dioxide BUN Creatinine Estimated GFR BUN/Creatinine Ratio Glucose Lactate Calcium Total Bilirubin AST ALT Alkaline Phosphatase C-Reactive Protein Total Protein Albumin Globulin Albumin/Globulin Ratio Procalcitonin Urine Color Urine Appearance Urine pH Ur Specific [place] Urine Protein Urine Glucose (UA) Urine Ketones Urine Occult Blood Urine Nitrate Urine Bilirubin Urine Urobilinogen Ur Leukocyte Esterase Urine RBC Urine WBC Urine Bacteria Ur Culture Indicated? SARS-CoV-2 (PCR) Negative Assessment & Plan Assessment & Plan narrative: ?Pepe Smith is a 71-year-old male a history of elevated PSA, GERD, gastric ulcers, Covid-19: 09/2020 and restrictive lung disease admitted for bacteremia, UTI per positive blood and urine cultures, and failing outpatient management. Patient admitted for hydration, and IV antibiotics. 1. Bacteremia, acute, likely the result prostate biopsy, in the setting of BPH, chronic, present on admission -stool culture/C diff ordered: per diarrhea demonstrated on admit -prostate biopsy done in [place] on 12/28/2021 -urine cultures 01/01/22 ESBL-Ecoli -cefdinir for Urine E coli given on 12/30/2021. -12/30/2021: Blood culture demonstrated multi drug resistant E coli. -Zosyn given in ED. -based on sensitivity patient started on ertapenem 1 gram QD-7-14 days. May consider outpt IV tx -hydration NS @ 100cc/hr -antiemetics and pain management -continue Flomax 2. UTI as evidence by positive urine culture, acute, present on admission -Ertapenem -Follow up with Urology on d/c 3. Thrombocytopenia, acute, present on admission -etiology unknown -platelets 122 4. GERD, with history of gastric ulcers, acute on chronic, present on admission -IV 40 mg Protonix now -GI cocktail now -40 mg p.o. twice daily Protonix-in place the patient's famotidine/omeprazole Code status: Full Surrogate decision maker: Kandy Smith spouse COVID PCR: Negative COVID vaccination: Fully vaccinated booster DVT/VTE prophylaxis: Lovenox and SCDs Disposition: Patient admitted for observation, expected length of stay less than 2 midnights. I have utilized all available immediate resources to obtain, update, or review the patient's current medications. I confirmed that the patient's advanced care plan is present, Code status is documented and/or surrogate decision maker is listed in the patient's medical record. Time Spent With Patient Critical Care time: I spent a total of [] minutes of critical care time on this patient's care today; this time is exclusive of procedural time. Quality VTE Deep Vein Thrombosis/Pulmonary Embolism Present on Admission: No
[2022-01-02 06:03] LABS: Hematocrit 39.5 % (41-53); Hemoglobin 13.4 g/dL (13.5-17.5); Mean Corpuscular Hemoglobin 30.9 PG (26-34); Mean Corpuscular Volume 90.7 fL (80-100); Platelet Count 136 X10^3/uL (150-400); Red Blood Cell Count 4.36 X10^6/uL (4.5-5.9); Red Cell Distribution Width 13.5 % (11.6-14.8); White Blood Cell Count 5.7 X10^3/uL (4.5-11.0)
[2022-01-02 06:07] LABS: Add Manual Diff / Slide Review YES
[2022-01-02 06:32] LABS: Neutrophils Absolute Manual 4389 /uL (3000-5900); RBC Morphology Normal Morphology; Total Cells Counted 100
[2022-01-02] MEDS: PANTOPRAZOLE DR 40 MG TABLET PO (06:46)
[2022-01-02] MEDS: BENZONATATE 100 MG CAPSULE PO ×3 (06:51→15:11)
[2022-01-02] MEDS: SODIUM CHLORIDE 0.9% 1,000 ML 100 ML IV (08:08)
[2022-01-02] MEDS: TAMSULOSIN 0.4 MG CAPSULE 0.8 MG PO (08:09)
[2022-01-02] MEDS: ERTAPENEM 1 GM in SODIUM CHLORIDE 0.9% 100 ML 200 ML IV (08:09)
[2022-01-02 10:14] LABS: Acinetobacter baumannii Not Detected (Not Detect); Candida albicans Not Detected (Not Detect); Candida glabrata Not Detected (Not Detect); Candida krusei Not Detected (Not Detect); Candida parapsilosis Not Detected (Not Detect); Candida tropicalis Not Detected (Not Detect); E. coli Detected (Not Detect); Enterobacter cloacae complex Not Detected (Not Detect); Enterobacteriaceae species Detected (Not Detect); Enterococcus species Not Detected (Not Detect); Haemophilus influenzae Not Detected (Not Detect); KPC (carbapenem-resist gene) Not Detected (Not Detect); Listeria monocytogenes Not Detected (Not Detect); Methicillin-resistant gene Not Detected (Not Detect); Neisseria meningitidis Not Detected (Not Detect); Proteus species Not Detected (Not Detect); Pseudomonas aeruginosa Not Detected (Not Detect); Serratia marcescens Not Detected (Not Detect); Staphylococcus species Not Detected (Not Detect); Streptococcus agalactiae (Gr B Not Detected (Not Detect); Streptococcus pneumonia Not Detected (Not Detect); Streptococcus pyogenes (Gr A) Not Detected (Not Detect); Streptococcus species Not Detected (Not Detect); Vancomycin-rest genes A/B Not Detected (Not Detect)
--- NOTE | 2022-01-02 12:58 | CM.DANOTE ---
Patient is a 71 yo male who was admitted on 01/01/22 for Infection. Pt has [facility] for insurance and his PCP is Dr. Juan David Browning. EMR was reviewed. Per , pt with hx of COVID in Sep 2021, hx of lung disease and recent prostrate biopsy at [facility] on 12/28/21 a few days ago and now with bacteremia and needing IV-Abx Ertapenum Q24 for 9 more days. Per shipping services sales representative, called in the weekend Midline specialist but they cannot come until [address] SW met bedside with pt and explained role and he confirms he lives in [place] with his spouse and is active and independent with ADL's at baseline and drives. He is retired but remains active with muslim and friends. Pt denies any hx of SNF or HH and spouse is his DPOA and pt is fully COVID vaccinated. SW discussed IV-Abx options at d/c including Home Infusion or Outpt Infusion clinic once a day. Pt states he would prefer to do outpt infusion clinic as he lives close and would like to have staff to keep an eye on him daily with his infections. Preference is [facility] since he lives nearby. completed hard script of Ertapenum 1gram Q24 and SW made copy and faxed [facility] pt's facesheet, H&P, copy of hard script, and d/c summary to review for tomorrow and left msg on Infusion Clinic torpedo worker phone line with specifics. SW requested shipping services sales representative fax the midline placement note to [facility] since that will be completed after SW shift today. Plan: Patient to d/c home this evening via spouse POV and ongoing IV-Abx for 9 days at [facility] once daily. FAZAL Clark Discharge Planning/Care Management Advanced directive, confirm from FAMILY Start: 01/01/22 21:14 Freq: Q24H Status: Active Protocol: Document 01/01/22 21:22 AKP (Rec: 01/01/22 21:23 AKP [id number]) Advance Directive, confirm on record Time 21:23 Person contacted Kandy Smith Copy received No Advanced directive available on record No CM Discharge Assessment Start: 01/02/22 12:54 Freq: Status: Active Protocol: Document 01/02/22 12:54 BF (Rec: 01/02/22 12:58 BF [id number]) Discharge Planning Assessment Assigned Manager Statistics FAZAL Hernandez DPOA/Assigned Designee Name spouse Kandy Contact Information [phone] Advance Directives? Yes Advance Directives on File No History Provided By Patient,Significant Other, Medical Record Has Patient been admitted in last 30 No days? Comment Recent prostrate biopsy at [facility] on 12/28/21 Prior Living Arrangements House Household Members spouse Type of transporation used prior to Drives own vehicle admit Independent with ADL's Yes Is patient alert and oriented? Yes Caregiver for Another No Barriers to Discharge No Discharge Plan Home Community Services IV Therapy Transportation Arrangement Spouse bedside and can transport to home at d/c Referrals Initiated Other Additional Comment Outpt Infusion Clinic for ongong IV-Abx Whiteboard Updated in Patient Room with Yes name and ext. # of Manager Statistics Review Status In Process Please Provide Date Initial DC 01/02/22 Assessment Was Performed Next Review Type Continued Stay Review
--- NOTE | 2022-01-02 14:44 | P.DS_ITS ---
History of Present Illness History of Present Illness Chief complaint: Doctor Called and Said to Come In Narrative: Per Pamela Sellers: Pepe Smith is a 71-year-old male a history of elevated PSA, GERD, gastric ulcers, Covid-19: 09/2020 and restrictive lung disease presented to the ED following a request due to positive blood ( Ecoli-prelim)and urine cultures 01/01/22 ESBL-Ecoli.? Patient had a prostate biopsy done in [place] on 12/28/2021, the following night he developed rigors and shakes.? Seen 12/30/2021, he is diagnosed with UTI with an elevated procalcitonin sign of 21.? Placed on cefdinir for Urine E coli.? Blood culture demonstrated multi drug resistant E coli in his blood. Zosyn given in ED. ? Patient complains of continued of rigors, chills, body aches, nausea, abd pain, cough, acid reflux, pain in the bladder with dysuria. Denies chest pain, vomiting, shortness of breath, blood in urine or stool, or cardiac history. ? Patient's vitals were stable upon admit temp 97.7?, BP 130/83, HR 86, R 20, O2 saturation 98% on room air.? Patient's CBC is stable with the exception of plat elets of 122, CMP is unremarkable with the exception of glucose of 154, albumin 3.4, procalcitonin 10.7, reviewed urinary culture 01/01/2022 ESBL E coli, blood culture from 12/30/2021 E coli preliminary.? Patient is admitted for bacteremia, UTI, and thrombocytopenia. Discharge Providers Provider Date of admission: 01/01/22 19:52 Discharge Date: 01/02/22 Primary care physician: Juan David Browning MD Discharge provider: Stuart Weems MD Summary Hospital Course Discharge Diagnosis: 1. ESBL UTI and bacteremia from recent prostate biopsy 2. BPH 3. Thrombocytopenia 4. GERD Hospital Course: Mr. Smith was recommended to come back to the hospital after recently being seen in the ED as he had ESBL E. coli UTI and bacteremia. He was clinically doing well once he was admitted. He had no fevers/chills. He was eating well. He was feeling as if he could go home. His infection was notably sensitive to multiple IV medications including ertapenem. He was planned to have IV ertapenem 1gm daily infused through a midline for a 10 day course. This would be through 01/12/22. He had no further diarrhea in the hospital. Exam Vital Signs (past 8 hours): - 01/02/22 08:00 01/02/22 11:50 Temperature 99.5 F 98.5 F Pulse Rate 76 79 Respiratory Rate 17 20 Blood Pressure 141/86 H 125/76 Pulse Oximetry 95 95 Oxygen Delivery Method Room Air Oxygen Flow Rate 0 Narrative Exam Narrative: GEN: no acute distress CV: regular rate and rhythm PULM: clear bilaterally, no wheezes, rhonchi, rales Objective Labs Result Diagrams: 01/02/22 05:10 01/01/22 18:11 Labs: Laboratory Results - last 24 hr 01/01/22 01/01/22 01/01/22 18:11 18:11 18:11 WBC 6.5 RBC 4.31 L Hgb 13.5 Hct 39.1 L MCV 90.7 MCH 31.3 MCHC 34.5 RDW 13.3 Plt Count 122 L Neut % (Auto) 80.5 H Lymph % (Auto) 7.0 L Cecil % (Auto) 7.8 Eos % (Auto) 4.4 H Baso % (Auto) 0.3 Neut # (Auto) 5200 Lymph # (Auto) 500 L Cecil # (Auto) 500 Eos # (Auto) 300 Baso # (Auto) 0 Total Counted Seg Neutrophils % Band Neutrophils % Lymphocytes % (Manual) Monocytes % (Manual) Eosinophils % (Manual) Neutrophils # (Manual) RBC Morphology ESR Sodium 138 Potassium 3.6 Chloride 105 Carbon Dioxide 28 BUN 16 Creatinine 0.89 Estimated GFR > 60.0 BUN/Creatinine Ratio 18.0 Glucose 154 H Lactate 1.4 Calcium 9.1 Total Bilirubin 0.5 AST 43 ALT 24 Alkaline Phosphatase 70 C-Reactive Protein Total Protein 6.8 Albumin 3.4 L Globulin 3.4 Albumin/Globulin Ratio 1.0 Procalcitonin 10.7 H Urine Color Urine Appearance Urine pH Ur Specific [place] Urine Protein Urine Glucose (UA) Urine Ketones Urine Occult Blood Urine Nitrate Urine Bilirubin Urine Urobilinogen Ur Leukocyte Esterase Urine RBC Urine WBC Urine Bacteria Ur Culture Indicated? A. baumannii (PCR) Denisse albicans (PCR) C. glabrata (PCR) C. krusei (PCR) C. parapsilosis (PCR) C. tropicalis (PCR) SARS-CoV-2 (PCR) Enterobacteriac sp PCR E. cloacae complex PCR Enterococcus sp PCR E. coli (PCR) H. influenzae (PCR) Klebsiella oxytoca PCR Klebsiella pneumoniae List. monocytogenes PCR N. meningitidis (PCR) Proteus species (PCR) Serratia marcescens PCR Staphylococcus sp PCR Staph aureus (PCR) mecA-Methicil Res Gene Streptococcus sp PCR Group A Strep (PCR) Strep agalactiae (PCR) Strep pneumoniae (PCR) P. aeruginosa (PCR) Riaz/B-Vanco Res Genes KPC-Carbap Res Gene PCR 01/01/22 01/01/22 01/01/22 18:11 18:11 18:11 WBC RBC Hgb Hct MCV MCH MCHC RDW Plt Count Neut % (Auto) Lymph % (Auto) Cecil % (Auto) Eos % (Auto) Baso % (Auto) Neut # (Auto) Lymph # (Auto) Cecil # (Auto) Eos # (Auto) Baso # (Auto) Total Counted Seg Neutrophils % Band Neutrophils % Lymphocytes % (Manual) Monocytes % (Manual) Eosinophils % (Manual) Neutrophils # (Manual) RBC Morphology ESR 48 H Sodium Potassium Chloride Carbon Dioxide BUN Creatinine Estimated GFR BUN/Creatinine Ratio Glucose Lactate Calcium Total Bilirubin AST ALT Alkaline Phosphatase C-Reactive Protein 17.2 H Total Protein Albumin Globulin Albumin/Globulin Ratio Procalcitonin Urine Color Urine Appearance Urine pH Ur Specific [place] Urine Protein Urine Glucose (UA) Urine Ketones Urine Occult Blood Urine Nitrate Urine Bilirubin Urine Urobilinogen Ur Leukocyte Esterase Urine RBC Urine WBC Urine Bacteria Ur Culture Indicated? A. baumannii (PCR) Not detected Denisse albicans (PCR) Not detected C. glabrata (PCR) Not detected C. krusei (PCR) Not detected C. parapsilosis (PCR) Not detected C. tropicalis (PCR) Not detected SARS-CoV-2 (PCR) Enterobacteriac sp PCR Detected H E. cloacae complex PCR Not detected Enterococcus sp PCR Not detected E. coli (PCR) Detected H H. influenzae (PCR) Not detected Klebsiella oxytoca PCR Not detected Klebsiella pneumoniae Not detected List. monocytogenes PCR Not detected N. meningitidis (PCR) Not detected Proteus species (PCR) Not detected Serratia marcescens PCR Not detected Staphylococcus sp PCR Not detected Staph aureus (PCR) Not detected mecA-Methicil Res Gene Not detected Streptococcus sp PCR Not detected Group A Strep (PCR) Not detected Strep agalactiae (PCR) Not detected Strep pneumoniae (PCR) Not detected P. aeruginosa (PCR) Not detected Riaz/B-Vanco Res Genes Not detected KPC-Carbap Res Gene PCR Not detected 01/01/22 01/01/22 01/02/22 19:25 20:03 05:10 WBC 5.7 RBC 4.36 L Hgb 13.4 L Hct 39.5 L MCV 90.7 MCH 30.9 MCHC 34.0 RDW 13.5 Plt Count 136 L Neut % (Auto) Not Reportable Lymph % (Auto) Not Reportable Cecil % (Auto) Not Reportable Eos % (Auto) Not Reportable Baso % (Auto) Not Reportable Neut # (Auto) Lymph # (Auto) Not Reportable Cecil # (Auto) Not Reportable Eos # (Auto) Baso # (Auto) Not Reportable Total Counted 100 Seg Neutrophils % 49.0 Band Neutrophils % 28.0 H Lymphocytes % (Manual) 11.0 L Monocytes % (Manual) 7.0 Eosinophils % (Manual) 5.0 H Neutrophils # (Manual) 4389 RBC Morphology Normal morphology ESR Sodium Potassium Chloride Carbon Dioxide BUN Creatinine Estimated GFR BUN/Creatinine Ratio Glucose Lactate Calcium Total Bilirubin AST ALT Alkaline Phosphatase C-Reactive Protein Total Protein Albumin Globulin Albumin/Globulin Ratio Procalcitonin Urine Color Yellow Urine Appearance Sl cloudy Urine pH 6.0 Ur Specific [place] 1.015 Urine Protein Trace H Urine Glucose (UA) Negative Urine Ketones Negative Urine Occult Blood 3+ H Urine Nitrate Negative Urine Bilirubin Negative Urine Urobilinogen 0.2 Ur Leukocyte Esterase 2+ H Urine RBC 1-5/hpf D Urine WBC 30-100/hpf H Urine Bacteria Many (>30) H Ur Culture Indicated? Specimen cultured A. baumannii (PCR) Denisse albicans (PCR) C. glabrata (PCR) C. krusei (PCR) C. parapsilosis (PCR) C. tropicalis (PCR) SARS-CoV-2 (PCR) Negative Enterobacteriac sp PCR E. cloacae complex PCR Enterococcus sp PCR E. coli (PCR) H. influenzae (PCR) Klebsiella oxytoca PCR Klebsiella pneumoniae List. monocytogenes PCR N. meningitidis (PCR) Proteus species (PCR) Serratia marcescens PCR Staphylococcus sp PCR Staph aureus (PCR) mecA-Methicil Res Gene Streptococcus sp PCR Group A Strep (PCR) Strep agalactiae (PCR) Strep pneumoniae (PCR) P. aeruginosa (PCR) Riaz/B-Vanco Res Genes KPC-Carbap Res Gene PCR 01/02/22 05:10 WBC RBC Hgb Hct MCV MCH MCHC RDW Plt Count Neut % (Auto) Lymph % (Auto) Cecil % (Auto) Eos % (Auto) Baso % (Auto) Neut # (Auto) Lymph # (Auto) Cecil # (Auto) Eos # (Auto) Baso # (Auto) Total Counted Seg Neutrophils % Band Neutrophils % Lymphocytes % (Manual) Monocytes % (Manual) Eosinophils % (Manual) Neutrophils # (Manual) RBC Morphology ESR Sodium Potassium Chloride Carbon Dioxide BUN Creatinine Estimated GFR BUN/Creatinine Ratio Glucose Lactate Calcium Total Bilirubin AST ALT Alkaline Phosphatase C-Reactive Protein Total Protein Albumin Globulin Albumin/Globulin Ratio Procalcitonin 9.00 H Urine Color Urine Appearance Urine pH Ur Specific [place] Urine Protein Urine Glucose (UA) Urine Ketones Urine Occult Blood Urine Nitrate Urine Bilirubin Urine Urobilinogen Ur Leukocyte Esterase Urine RBC Urine WBC Urine Bacteria Ur Culture Indicated? A. baumannii (PCR) Denisse albicans (PCR) C. glabrata (PCR) C. krusei (PCR) C. parapsilosis (PCR) C. tropicalis (PCR) SARS-CoV-2 (PCR) Enterobacteriac sp PCR E. cloacae complex PCR Enterococcus sp PCR E. coli (PCR) H. influenzae (PCR) Klebsiella oxytoca PCR Klebsiella pneumoniae List. monocytogenes PCR N. meningitidis (PCR) Proteus species (PCR) Serratia marcescens PCR Staphylococcus sp PCR Staph aureus (PCR) mecA-Methicil Res Gene Streptococcus sp PCR Group A Strep (PCR) Strep agalactiae (PCR) Strep pneumoniae (PCR) P. aeruginosa (PCR) Riaz/B-Vanco Res Genes KPC-Carbap Res Gene PCR PFSH Medical History (Updated 01/02/22 @ 05:25 by FAUSTINO Love) COVID-19 Gastric ulcer GERD (gastroesophageal reflux disease) Kidney stones Restrictive lung disease Surgical History Hx of prostate biopsy Family History Mother Congestive heart failure Cancer Father Cancer Social History household members: spouse Smoking Status: Never smoker Discharge Plan Discharge Plan Patient Disposition: Home Provider Discharge Comment: Mr. Smith came in with an infection that from his urine that spread into his blood. He will need to be on IV antibiotics through January 12. He will be on the medication ertapenem once a day through infusion. Discharge orders & Medications Prescriptions: Continued tamsulosin [Flomax] 0.4 mg capsule 0.8 mg PO QAM 0RF Label Comments: Take 2 capsule by mouth once a day omeprazole 40 mg capsule,delayed release(DR/EC) 40 mg PO BID 0RF famotidine 20 mg tablet 20 mg PO QPM 0RF Discontinued cefdinir 300 mg capsule 300 mg PO Q12H 10 Days Qty: 20 0RF Follow up/Referrals: Juan David Browning MD [Primary Care Provider] - Discharge Health Status Multidrug resistant organism: Other Diet/Activity/Treatments Diet: Regular Skin/Wound/Dressing Care Report to your healthcare provider any signs of infection, such as:: chills, fever Discharge Data Primary Care Provider: Juan David Browning Attending Provider: Pamela Sellers VTE Deep Vein Thrombosis/Pulmonary Embolism Present on Admission: No
[2022-01-02] MEDS: ACETAMINOPHEN 325 MG TABLET 650 MG PO (15:11)
--- NOTE | 2022-01-02 16:17 | PC.NURSE ---
Discharge Note Patient A&O, VSS to baseline, no complaints of pain/discomfort. Discharge packet reviewed with patient. Patient aware that oncology/infusion clinic will follow-up to schedule infusion tomorrow, facility phone number given to patient for back up. All questions/concerns addressed. PIV discontinued, patient given supplies to care for midline at home. Patient taken down via wheelchair to POV.
--- NOTE | 2022-01-04 10:32 | CM.DANOTE ---
Addendum entered by Alexa Chang 01/04/22 11:05: Spoke with Britt at [facility] to confirm the below. Questions Britt can be reached at # [phone]. Original Note: DCP/Late Entry: Received call from Lena from [facility] clinic. She reports that they received this patient for continued outpatient IV abx therapy on Monday 2-. Notes indicate patient requiring 9 days of ertapenem 1x daily. Lena reports that no authorization had been obtained for patient to go to outpatient clinic for treatment. FAZAL reviewed notes indicating that referral sent and prescription faxed with voicemail to clinic with referral. Patient was provided with preference for services and chose to go outpatient daily to [facility]. CM team and nursing having previously sent referrals to [facility] for outpatient infusion on weekends/holidays without any issue. Apparently because this payor is [facility] and requires authorization barrier is now occurring with authorization? Patient wanted to go home and there was no medical reason to keep patient hospitalized in acute care. CM team does not obtain authorizations for outpatient antibiotics for any infusion and/or home health agency. Per guidelines facility or agency has the responsibility to obtain authorization for services in there buildings and/or agencies. P: SEE Above. Moving forward may be beneficial for outpatient Infusion services to review and/or update policy on accepting infusion patient's over the weekend or holiday. Makes the most financial sense to continue to d/c patients rather than keep them hospitalized over an authorization. FAZAL Elliott
== END 2022-01-02 16:10 | disposition home or self-care (01) ==
LOC: ED 19:44 → AC 20:01
PROVIDERS: Emergency Medicine; Admitting Provider Nurse Practitioner Family; Emergency Provider Emergency Medicine; PCP Family Medicine; Referring Provider Emergency Medicine; Visit Provider Nurse Practitioner Family
DX: N39.0 Urinary tract infection, site not specified (principal); R78.81 Bacteremia; B96.20 Unspecified Escherichia coli [E. coli] as the cause of diseases classified elsewhere; D69.6 Thrombocytopenia, unspecified; K21.9 Gastro-esophageal reflux disease without esophagitis; J98.4 Other disorders of lung; Z20.822 Contact with and (suspected) exposure to COVID-19
CPT/HCPCS: 36415; 36569; 80053; 81001; 81003; 83605; 84145; 85007; 85025; 85651; 86140; 87040; 87077; 87086; 87150; 87186; 87205; 87635; 94760; 96361; 96365; 96375; 99284; C9803; G0378; A9270; C9113; J1335; J1650; J2405; J2543

== ENCOUNTER 2022-01-03 16:27 | Emergency (ER) | payer OTHER, SELFPAY ==
[2022-01-01 20:54] VITALS: BMI 26.5
[2022-01-03 16:31] VITALS: BP 140/80; PULSE 89; RESP 20; TEMP 36.5; O2SAT 97
[2022-01-03] MEDS: ERTAPENEM 1 GM in SODIUM CHLORIDE 0.9% 100 ML 200 ML IV (17:13)
--- NOTE | 2022-01-03 18:02 | ED.RECABL ---
HPI - Recheck/Abnormal Lab/Rx General Chief Complaint: Recheck/Abnormal Lab/Rx Stated Complaint: Needs Infusion Time Seen by Provider: 01/03/22 18:00 Source: patient Mode of arrival: Ambulatory History of Present Illness HPI narrative: 71M with history of GERD, PUD, restrictive lung disease with recent prostate biopsy and positive blood cultures comes for IV infusion of ABX because preapproval for insurance failed at the infusion clinic. He had prostate biopsy last week and telling him and started having rigors with subjective fever the on Monday and Monday night. He had a presenting to our emergency department and had a large workup and was placed on antibiotics. Cultures became positive over the course of the week and. He is feeling much better at this point time but will need a course of IV antibiotics Related Data Home Medications Medication Instructions Recorded Confirmed famotidine 20 mg tablet 20 mg PO QPM 01/01/22 01/01/22 omeprazole 40 mg capsule,delayed 40 mg PO BID 01/01/22 01/01/22 release tamsulosin 0.4 mg capsule (Flomax) 0.8 mg PO QAM 01/01/22 01/01/22 Allergies Allergy/AdvReac Type Severity Reaction Status Date / Time codeine AdvReac Vomiting Verified 12/30/21 09:34 Review of Systems Review of Systems Narrative: GENERAL: Denies chills, fatigue, malaise, fever, sweats. HEENT: Denies sinus pain, ear pain, sore throat, difficulty swallowing, dizziness. RESPIRATORY: Denies dyspnea, cough, wheezing, hemoptysis, sputum. CARDIOVASCULAR: Denies chest pain, palpitations, orthopnea, edema, GASTROINTESTINAL: Denies nausea, vomiting, abdominal pain, diarrhea, constipation, melena. : Denies dysuria, frequency, incontinence, hematuria, urinary retention. MUSCULOSKELETAL: denies weakness, joint pain, or bony pain SKIN: Denies rash, skin lesions, or other NEUROLOGIC: Denies weakness, headache, numbness, change in speech, confusion, seizures, incoordination. PSYCHIATRIC: No concerning psychosocial issues. 12 point review of systems is negative except for those stated above Patient History Medical History COVID-19 Gastric ulcer GERD (gastroesophageal reflux disease) Kidney stones Restrictive lung disease Surgical History Hx of prostate biopsy Family History Mother Congestive heart failure Cancer Father Cancer Social History household members: spouse Smoking Status: Never smoker Smoking Status: Never smoker alcohol intake frequency: 0-2 drinks per day Substance Use Type: does not use Exam Narrative Exam Narrative: GENERAL: [71] year old patient appears stated age. Well-developed patient, in mild distress. HEAD: Atraumatic. Normocephalic. EYES: Pupils equal round and reactive. Extraocular motions intact. No scleral icterus. No injection or drainage. ENT: Nose without bleeding, purulent drainage. Throat without erythema, tonsillar hypertrophy or exudate. Airway patent. NECK: Trachea midline. Non tender CARDIOVASCULAR: Regular rate and rhythm without murmurs, gallops, or rubs. RESPIRATORY: Clear to auscultation. Breath sounds equal bilaterally. No wheezes, rales, or rhonchi. GASTROINTESTINAL: Abdomen soft, non-tender, nondistended. EXTREMITIES: No edema or joint tenderness. BACK: Nontender without deformity or crepitance. No flank tenderness. NEURO: AOx3. SKIN: No rash or erythema of visible areas Initial Vital Signs Initial Vital Signs: Vital Signs Temperature 97.7 F 01/03/22 16:31 Pulse Rate 89 01/03/22 16:31 Respiratory Rate 20 01/03/22 16:31 Blood Pressure 140/80 01/03/22 16:31 Pulse Oximetry 97 01/03/22 16:31 Course Orders Ordered: Discontinued Medications Ertapenem 1 gm/ Sodium (Chloride) 100 mls @ 200 mls/hr IV NOW ONE Stop: 01/03/22 16:47 Last Infusion: 01/03/22 17:56 Dose: 0 mls/hr Documented by: Admin: 01/03/22 17:13 Dose: 200 mls/hr Documented by: NAHED Vital Signs Vital signs: Vital Signs - 8 hr 01/03/22 16:31 01/03/22 18:20 Temperature 97.7 F 98.6 F Pulse Rate 89 82 Respiratory Rate 20 16 Blood Pressure 140/80 138/86 Pulse Oximetry 97 98 Discharge Plan Departure Patient Disposition: Home Clinical Impression: Bacteremia Activity Restrictions/Additional Instructions: *You have been diagnosed with [bacteremia and UTI with need for ongoing IV medications *What to do: *Please continue to take your regular medications as directed. [ ] New medication prescriptions sent to your pharmacy: [ ] [ ] New medication written as a paper prescription [ ] No new medications given * I am awaiting a call from your insurance company so we can hopefully get this set up at the infusion clinic. [facility] Will call you tonight *Return to Emergency Department if you should have any new, worsening or concerning symptoms Prescriptions: No Action tamsulosin [Flomax] 0.4 mg capsule 0.8 mg PO QAM 0RF Label Comments: Take 2 capsule by mouth once a day omeprazole 40 mg capsule,delayed release(DR/EC) 40 mg PO BID 0RF famotidine 20 mg tablet 20 mg PO QPM 0RF Referrals: Juan David Browning MD [Primary Care Provider] -
[2022-01-03 18:20] VITALS: BP 138/86; PULSE 82; RESP 16; TEMP 37; O2SAT 98
== END 2022-01-03 18:21 | disposition home or self-care (01) ==
PROVIDERS: Emergency Provider Emergency Medicine; PCP Family Medicine
DX: R78.81 Bacteremia (principal); N39.0 Urinary tract infection, site not specified
CPT/HCPCS: 96365; 99283; J1335

== ENCOUNTER → 2022-02-09 12:28 | Outpatient (CLI) | payer OTHER, SELFPAY ==
[2022-01-01 20:54] VITALS: BMI 26.5
[2022-02-09 12:57] LABS: Add Manual Diff / Slide Review NO; Basophils Absolute Auto 100 /uL (0-100); Basophils Percent Auto 0.8 % (0-2); Eosinophils Absolute Auto 300 /uL (0-450); Eosinophils Percent Auto 3.9 % (2-4); Hematocrit 42.7 % (41-53); Hemoglobin 14.4 g/dL (13.5-17.5); Lymphocytes Absolute Auto 1200 /uL (1100-4500); Mean Corpuscular HGB Conc 33.7 % (30-36); Mean Corpuscular Hemoglobin 30.4 PG (26-34); Monocytes Absolute Auto 1000 /uL (0-900); Monocytes Percent Auto 11.8 % (3-14); Neutrophils Absolute Auto 6300 /uL (1500-7000); Neutrophils Percent Auto 70.5 % (50-75); Platelet Count 272 X10^3/uL (150-400); Red Blood Cell Count 4.74 X10^6/uL (4.5-5.9); White Blood Cell Count 8.9 X10^3/uL (4.5-11.0)
[2022-02-09 13:15] LABS: Erythrocyte Sedimentation Rate 27 MM/HR (0-15)
[2022-02-09 13:16] LABS: Alanine Aminotransferase 11 IU/L (<50); Albumin 4.2 g/dL (3.5-5.0); Alkaline Phosphatase 98 U/L (38-126); Aspartate Aminotransferase 18 IU/L (17-59); BUN Creatinine Ratio 19.7 (6-22); Bilirubin Total 0.5 mg/dL (0.2-1.3); Blood Urea Nitrogen 23 mg/dL (9-20); Carbon Dioxide 27 mmol/L (22-32); Chloride 105 mmol/L (98-107); Estimated Glomerular Filt Rate > 60.0 mL/min (>60); Globulin 4.3 g/dL (1.7-4.1); Glucose 86 mg/dL (80-110); HEMOLYSIS < 15 (0-50); Potassium 4.1 mmol/L (3.4-5.1); Sodium 141 mmol/L (137-145); Total Protein 8.5 g/dL (6.3-8.2)
== END ==
PROVIDERS: PCP Family Medicine; Referring Provider Family Medicine; Visit Provider Family Medicine
DX: R78.81 Bacteremia (principal)
CPT/HCPCS: 36415; 80053; 85025; 85651; 86140

== ENCOUNTER → 2022-03-12 08:43 | Outpatient (CLI) | payer OTHER, SELFPAY ==
[2022-01-01 20:54] VITALS: BMI 26.5
[2022-03-12 09:57] LABS: Alanine Aminotransferase 12 IU/L (<50); Albumin 4.2 g/dL (3.5-5.0); Albumin Globulin Ratio 1.1 (1.0-2.8); Alkaline Phosphatase 90 U/L (38-126); Aspartate Aminotransferase 25 IU/L (17-59); BUN Creatinine Ratio 17.1 (6-22); Bilirubin Total 0.4 mg/dL (0.2-1.3); Blood Urea Nitrogen 21 mg/dL (9-20); Calcium 9.9 mg/dL (8.4-10.2); Carbon Dioxide 27 mmol/L (22-32); Chloride 109 mmol/L (98-107); Estimated Glomerular Filt Rate > 60 mL/min (>60); Globulin 3.8 g/dL (1.7-4.1); Glucose 110 mg/dL (80-110); HEMOLYSIS < 15 (0-50); Potassium 3.9 mmol/L (3.4-5.1); Sodium 144 mmol/L (137-145)
[2022-03-12 11:09] LABS: Rheumatoid Factor < 8.6 IU/mL (<12.0)
[2022-03-15 03:12] LABS: RPR Screen Non Reactive (Non Reactive)
[2022-03-15 15:51] LABS: Treponema pallidum Antibodies Non Reactive (Non Reactive)
[2022-03-16 10:37] LABS: Angiotensin Converting Enzyme 142 U/L (14-82)
[2022-03-16 11:11] LABS: Lysozyme (Muramidase) 17.3 ug/mL (3.0-12.8)
[2022-03-16 14:42] LABS: ANA Screen, IFA Negative (.)
== END ==
PROVIDERS: PCP Family Medicine; Referring Provider Ophthalmology; Visit Provider Ophthalmology
DX: H20.13 Chronic iridocyclitis, bilateral (principal); N39.0 Urinary tract infection, site not specified; R78.81 Bacteremia
CPT/HCPCS: 36415; 80053; 82164; 85549; 86038; 86430; 86592; 86780

== ENCOUNTER → 2022-06-08 11:30 | Outpatient (CLI) | payer OTHER, SELFPAY ==
[2022-01-01 20:54] VITALS: BMI 26.5
--- NOTE | 2022-06-08 11:49 | DI.CT.S_ITS ---
PROCEDURE: CT ABDOMEN PELVIS WO/W CON INDICATIONS: Gross hematuria TECHNIQUE: Optional 5 mm thick noncontrast images acquired from the diaphragm to the symphysis pubis. After the administration of intravenous contrast, 5 mm thick images acquired from the diaphragm to the symphysis pubis after a 10-minute delay. 2 mm thick coronal and sagittal reformats were then performed of the kidneys and ureters. For radiation dose reduction, the following was used: automated exposure control, adjustment of mA and/or kV according to patient size. COMPARISON: [facility], CR, XR CHEST 1V, 12/30/2021, 9:42. [facility], CT, CT ABDOMEN PELVIS W CON, 12/30/2021, 10:19. FINDINGS: Image quality: Excellent. Lung bases: Continued ground-glass opacities and interstitial changes and nodular scarring in the right lung base, not significantly changed. Findings suggest possible chronic pulmonary interstitial fibrosis. Unchanged bilateral hilar and subcarinal adenopathy. There also calcified left infrahilar lymph nodes. Consider sarcoidosis. Heart size is normal. Urinary system: Kidneys are of normal size. There is no hydronephrosis. Again noted are multiple right renal cysts, including a Bosniak 2 9.5 cm predominantly exophytic cyst and a simple cyst measuring 5.8 cm. There are numerous nonobstructing small right renal stones. There are numerous small nonobstructing left renal stones. There is a left renal calyceal stone measuring approximately 4 mm. No stone is of sufficient size to measure the Hounsfield units. No perinephric fat stranding. There is normal bilateral renal enhancement. Renal calyces appear normal in morphology when filled with contrast. Opacified portions of both ureters demonstrate normal caliber. Mild bladder wall thickening. No calcified bladder stones. Other solid organs: Liver is normal in size and enhancement. Gallbladder is unremarkable . Biliary system is non dilated. Pancreas enhances normally. Spleen is normal in size and enhancement. No adrenal nodules. Peritoneum and bowel: Bowel loops demonstrate normal wall thickness and caliber. Sigmoid diverticulosis without evidence of diverticulitis. No free fluid or air. Nodes and vessels: No retroperitoneal or mesenteric adenopathy by size criteria. Aorta and inferior vena cava are normal in size. Abdominal wall: No ventral hernias. Pelvis: No pathologic free pelvic fluid. Fat containing right inguinal hernia. No inguinal adenopathy Bones: No suspicious bony lesions. No vertebral body compression fractures. Remote right hip arthroplasty. . IMPRESSION: 1. Pulmonary findings are unchanged. Symmetric mediastinal and subcarinal adenopathy with some calcified lymph nodes, as well as bibasilar ground-glass opacities and pulmonary fibrosis. Consider sarcoidosis as a possible etiology. 2. There are multiple nonobstructing small bilateral stones. This includes a small left renal pelvic stone. There is no hydronephrosis. Hip 3. Mild bladder wall thickening. 4. Right inguinal hernia. Dictated by: Demarcus Power M.D. on 06/08/2022 at 12:53 Approved by: Demarcus Power M.D. on 06/08/2022 at 13:01
== END ==
PROVIDERS: PCP Family Medicine; Referring Provider Urology; Visit Provider Urology
DX: J98.4 Other disorders of lung; R59.0 Localized enlarged lymph nodes; R31.0 Gross hematuria; K57.30 Diverticulosis of large intestine without perforation or abscess without bleeding; N20.0 Calculus of kidney; K40.90 Unilateral inguinal hernia, without obstruction or gangrene, not specified as recurrent
CPT/HCPCS: 74178

== ENCOUNTER → 2024-10-25 13:50 | Outpatient (CLI) | payer MEDICARE, OTHER, SELFPAY ==
[2022-01-01 20:54] VITALS: BMI 26.5
--- NOTE | 2024-10-25 13:58 | DI.RAD.S_ITS ---
PROCEDURE: XR LUMBAR SPINE 2-3V INDICATIONS: BACK PAIN TECHNIQUE: 3 views of the lumbar spine were acquired. COMPARISON: [facility], CR, XR ABDOMEN 1 VIEW, 03/13/2024, 15:59. FINDINGS: Bones: 5 [id number] vertebrae are present. Again noted is prior right posterior fusion at L5-S1 level. Surgical hardware positions are unchanged from prior study. No evidence of hardware loosening or failure. No acute vertebral body compression fractures. Mild degenerative endplate changes are noted throughout lumbar spine. No suspicious bony lesions. There is prior right total hip arthroplasty. Soft tissues: Overlying bowel gas pattern is normal. No suspicious soft tissue calcifications. IMPRESSION: Postfusion changes at L5-S1 level. No evidence of hardware loosening or failure. No acute vertebral body compression fracture. Degenerative disc disease throughout lumbar spine. Dictated by: Rogelio Obando M.D. on 10/25/2024 at 18:55 Approved by: Rogelio Obando M.D. on 10/25/2024 at 18:56
== END ==
PROVIDERS: PCP Family Medicine; Referring Provider Chiropractor; Visit Provider Chiropractor
DX: M51.360 Other intervertebral disc degeneration, lumbar region with discogenic back pain only (principal); Z98.1 Arthrodesis status; Z96.641 Presence of right artificial hip joint
CPT/HCPCS: 72100

== ENCOUNTER → 2025-09-17 10:27 | Outpatient (CLI) | payer MEDICARE, OTHER, SELFPAY ==
[2025-07-02 23:29] VITALS: BMI 29.4
[2025-09-17 13:26] LABS: Prostate Specific Antigen < 0.064 ng/mL (0.10-4.00)
== END ==
PROVIDERS: PCP Family Medicine; Referring Provider Urology; Visit Provider Urology
DX: C61 Malignant neoplasm of prostate (principal)
CPT/HCPCS: 36415; 84153